=== PATIENT | female | born 1985 | race Two or more races ===

== ENCOUNTER 2017-05-12 17:54 | Emergency (ER) | payer SELFPAY ==
[~2017-05-12] VITALS: Ht 147.3 cm; Wt 75.7 kg
[~2017-05-12 17:54] MED LIST: LEVO25TA4 PO
[2017-05-12 18:18] VITALS: BP 100/50
--- NOTE | 2017-05-12 18:41 | PHYS DOC ---
Past Medical History Past Medical History: Anemia Past Surgical History: No Surgical History Alcohol Use: None Drug Use: None Adult General Chief Complaint Chief Complaint: CONTISPATION HPI HPI Patient is a 32 year old female presenting to the emergency department for evaluation of abdominal pain back pain nausea vomiting constipation and not passing gas. Patient had surgery 2 days ago at [facility] for her back with Dr. Ko. Patient says that she is having numbness and tingling in her legs which her neurosurgeon said would be expected. Patient says that she is taking hydrocodone and Valium for pain and spasms. She is in no obvious distress with normal vital signs. Review of Systems Review of Systems Constitutional: Denies fever or chills [] Eyes: Denies change in visual acuity, redness, or eye pain [] HENT: Denies nasal congestion or sore throat [] Respiratory: Denies cough or shortness of breath [] Cardiovascular: No additional information not addressed in HPI [] GI: + abdominal pain, nausea, vomiting. No bloody stools or diarrhea [] : Denies dysuria or hematuria [] Musculoskeletal: + back pain. No joint pain [] Integument: Denies rash or skin lesions [] Neurologic: Denies headache, focal weakness or sensory changes [] Current Medications Current Medications Current Medications Medications (Trade) Dose Ordered Sig/Jean Start Time Stop Time Status Last Admin Dose Admin Ceftriaxone Sodium 1 gm/ Sodium Chloride 50 ml @ 100 mls/hr Q24H 05/13/17 19:30 Ceftriaxone Sodium 50 ml @ 100 mls/hr 1X ONCE 05/12/17 19:45 05/12/17 20:14 Fentanyl Citrate (Fentanyl 2ml Vial) 50 mcg 1X ONCE 05/12/17 18:45 05/12/17 18:46 DC 05/12/17 18:50 50 MCG Info (Do NOT chart on this entry -- for MONITORING) 1 each PRN DAILY PRN 05/12/17 18:45 05/14/17 18:44 Iohexol (Omnipaque 240 Mg/ml) 30 ml 1X ONCE 05/12/17 18:45 05/12/17 18:46 DC Iohexol (Omnipaque 300 Mg/ml) 75 ml 1X ONCE 05/12/17 18:45 05/12/17 18:46 DC Magnesium Citrate (Citroma) 296 ml 1X ONCE 05/12/17 19:30 05/12/17 19:31 DC Methylnaltrexone [place] (Relistor) 12 mg 1X ONCE 05/12/17 19:30 05/12/17 19:31 DC Ondansetron HCl (Zofran) 8 mg 1X ONCE 05/12/17 18:45 05/12/17 18:46 DC 05/12/17 18:49 8 MG Sodium Chloride 1,000 ml @ 1,000 mls/hr 1X ONCE 05/12/17 18:45 05/12/17 19:44 DC 05/12/17 19:05 1,000 MLS/HR Allergies Allergies Allergies Coded Allergies Type Severity Reaction Last Updated Verified Iodine and Iodide Containing Produc Adverse Reaction Severe Rash 05/12/17 Yes Physical Exam Physical Exam Constitutional: Well developed, well nourished, no acute distress, non-toxic appearance. [] HENT: Normocephalic, atraumatic, bilateral external ears normal, oropharynx moist, no oral exudates, nose normal. [] Eyes: PERRLA, EOMI, conjunctiva normal, no discharge. [] Neck: Normal range of motion, no tenderness, supple, no stridor. [] Cardiovascular:Heart rate regular rhythm, no murmur [] Lungs & Thorax: Bilateral breath sounds clear to auscultation [] Abdomen: Bowel sounds hyperactive, soft, diffuse lower tenderness, no rebound or guarding, no masses, no pulsatile masses. [] Skin: Warm, dry, no erythema, no rash. [] Back: No tenderness, no CVA tenderness. [] Extremities: No tenderness, no cyanosis, no clubbing, ROM intact, no edema. [] Neurologic: Alert and oriented X 3, normal motor function, normal sensory function, no focal deficits noted. [] Current Patient Data Vital Signs Vital Signs Date Time Temp Pulse Resp B/P (MAP) Pulse Ox O2 Delivery O2 Flow Rate FiO2 05/12/17 18:50 20 100 Room Air 05/12/17 18:18 98.2 69 100/50 (67) 98.2 Lab Values Laboratory Tests Test 05/12/17 18:13 05/12/17 18:28 Urine Collection Type Unknown Urine Color Yellow Urine Clarity Cloudy Urine pH 5.5 Urine Specific [place] 1.020 Urine Protein Negative mg/dL (NEG-TRACE) Urine Glucose (UA) Negative mg/dL (NEG) Urine Ketones (Stick) Negative mg/dL (NEG) Urine Blood Small (NEG) Urine Nitrite Negative (NEG) Urine Bilirubin Negative (NEG) Urine Urobilinogen Dipstick 0.2 mg/dL (0.2 mg/dL) Urine Leukocyte Esterase Large (NEG) Urine RBC Occ /HPF (0-2) Urine WBC 20-40 /HPF (0-4) Urine Squamous Epithelial Cells Mod /LPF Urine Bacteria Many /HPF (0-FEW) Urine Mucus Slight /LPF White Blood Count 9.3 x10^3/uL (4.0-11.0) Red Blood Count 3.67 x10^6/uL (3.50-5.40) Hemoglobin 11.6 g/dL (12.0-15.5) L Hematocrit 33.6 % (36.0-47.0) L Mean Corpuscular Volume 92 fL (79-100) Mean Corpuscular Hemoglobin 32 pg (25-35) Mean Corpuscular Hemoglobin Concent 35 g/dL (31-37) Red Cell Distribution Width 12.6 % (11.5-14.5) Platelet Count 297 x10^3/uL (140-400) Neutrophils (%) (Auto) 65 % (31-73) Lymphocytes (%) (Auto) 26 % (24-48) Monocytes (%) (Auto) 7 % (0-9) Eosinophils (%) (Auto) 1 % (0-3) Basophils (%) (Auto) 1 % (0-3) Neutrophils # (Auto) 6.1 x10^3uL (1.8-7.7) Lymphocytes # (Auto) 2.4 x10^3/uL (1.0-4.8) Monocytes # (Auto) 0.6 x10^3/uL (0.0-1.1) Eosinophils # (Auto) 0.1 x10^3/uL (0.0-0.7) Basophils # (Auto) 0.1 x10^3/uL (0.0-0.2) Sodium Level 142 mmol/L (136-145) Potassium Level 4.1 mmol/L (3.5-5.1) Chloride Level 104 mmol/L (98-107) Carbon Dioxide Level 33 mmol/L (21-32) H Anion Gap 5 (6-14) L Blood Urea Nitrogen 7 mg/dL (7-20) Creatinine 0.8 mg/dL (0.6-1.0) Estimated GFR (Cockcroft-Gault) 83.7 BUN/Creatinine Ratio 9 (6-20) Glucose Level 89 mg/dL (70-99) Calcium Level 8.3 mg/dL (8.5-10.1) L Magnesium Level 1.7 mg/dL (1.8-2.4) L Total Bilirubin 0.3 mg/dL (0.2-1.0) Aspartate Amino Transferase (AST) 13 U/L (15-37) L Alanine Aminotransferase (ALT) 19 U/L (14-59) Alkaline Phosphatase 60 U/L (46-116) Total Protein 7.0 g/dL (6.4-8.2) Albumin 3.1 g/dL (3.4-5.0) L Albumin/Globulin Ratio 0.8 (1.0-1.7) L Lipase 90 U/L (73-393) Laboratory Tests 05/12/17 18:28 Laboratory Tests 05/12/17 18:28 EKG EKG [] Radiology/Procedures Radiology/Procedures History: Severe back pain and constipation after L4-5 decompression May 10, 2017. Comparison: None. Technique: CT of the abdomen and pelvis was performed without intravenous or oral contrast. Exposure: One or more of the following individualized dose reduction techniques were utilized for this examination: 1. Automated exposure control 2. Adjustment of the mA and/or kV according to patient size 3. Use of iterative reconstruction technique Findings: Evaluation of solid organs of the abdomen and pelvis is limited by lack of intravenous contrast. Evaluation of enteric structures may be limited by lack of oral contrast. Images of the lower chest demonstrate bibasilar atelectasis. Liver, spleen, pancreas, and bilateral adrenal glands unremarkable. Gallbladder is not well-seen and may be absent. Bilateral kidneys and ureters are free of stone or obstruction. No bowel obstruction or inflammation is seen. Appendix is without evidence of inflammation. Mild-moderate colonic stool is present. Uterus and adnexa have unremarkable CT appearance. Urinary bladder is unremarkable. No free air or significant free fluid is seen in the abdomen or pelvis. There is transitional anatomy present with 6 lumbar type vertebral bodies. Laminectomy changes are seen involving the 2 lowest lumbar type vertebral bodies. The surgical site also demonstrates foci of expected postoperative gas. Impression: No acute abnormality identified in the abdomen or pelvis. Electronically signed by: Casa Balderrama MD (05/12/2017 7:16 PM) [facility] DICTATED and SIGNED BY: CASA BALDERRAMA MD DATE: 05/12/171910 Course & Med Decision Making Course & Med Decision Making Patient had a large bowel movement after her CT scan and now she is feeling much better and is to go home. She may have a urinary tract infection from the catheter so will start on a short course of antibiotics. Patient told that it is very important she take stool softeners with all the pain medications that she is taking. I told to follow with her neurosurgeon and call them with any other concerns and come back to the ER with any worsening pain fevers vomiting or other general concerns. Dragon Disclaimer Dragon Disclaimer This electronic medical record was generated, in whole or in part, using a voice recognition dictation system. Departure Departure Impression: Primary Impression: Abdominal pain Additional Impressions: Constipation UTI (urinary tract infection) Disposition: 01 HOME, SELF-CARE Condition: GOOD Referrals: NO PCP (PCP) Patient Instructions: Constipation, Adult Scripts Ciprofloxacin Hcl (CIPRO) 250 Mg Tablet 1 TAB PO BID, #6 TAB Prov: KONG LOZA DO 05/12/17 Problem Qualifiers Primary Impression: Abdominal pain Abdominal location: lower abdomen, unspecified Qualified Codes: R10.30 - Lower abdominal pain, unspecified KONG LOZA DO May 12, 2017 18:41
[2017-05-12 18:44] LABS: BASO # 0.1 x10^3/uL (0.0-0.2); BASO % 1 % (0-3); EOS % 1 % (0-3); HEMATOCRIT 33.6 % (36.0-47.0); HEMOGLOBIN 11.6 g/dL (12.0-15.5); LYMPH # 2.4 x10^3/uL (1.0-4.8); LYMPH % 26 % (24-48); MEAN CORPUSCULAR HEMOGLOBIN 32 pg (25-35); MEAN CORPUSCULAR HGB CONC 35 g/dL (31-37); MEAN CORPUSCULAR VOLUME 92 fL (79-100); MONO % 7 % (0-9); NEUT % 65 % (31-73); PLATELET COUNT 297 x10^3/uL (140-400); RED BLOOD COUNT 3.67 x10^6/uL (3.50-5.40); RED CELL DISTRIBUTION WIDTH 12.6 % (11.5-14.5); WHITE BLOOD COUNT 9.3 x10^3/uL (4.0-11.0)
[2017-05-12] MEDS ORDERED: CONTRAST GIVEN MC PRN (18:45)
[2017-05-12] MEDS ORDERED: ONDANSETRON PF 4 MG/2 ML VIAL. IV ONE (18:45)
[2017-05-12] MEDS ORDERED: IOHEXOL 300 MG/ML 75 ML VIAL IV ONE (18:45)
[2017-05-12] MEDS ORDERED: IV NORMAL SALINE 1000ML BAG 1,000 ML IV ONE (18:45)
[2017-05-12] MEDS ORDERED: IOHEXOL 240 MG/ML 50ML VIAL. PO ONE (18:45)
[2017-05-12] MEDS ORDERED: fentaNYL PF VIAL 100 MCG/2 ML VIAL IV ONE (18:45)
[2017-05-12 18:47] LABS: BILIRUBIN,URINE NEGATIVE (NEG); GLUCOSE,URINE NEGATIVE (NEG); NITRITE,URINE NEGATIVE (NEG); PH,URINE 5.5; PROTEIN,URINE NEGATIVE (NEG-TRACE); UROBILINOGEN,URINE 0.2 mg/dL (0.2 mg/dL)
[2017-05-12 18:51] LABS: BACTERIA,URINE MANY /HPF (0-FEW); RBC,URINE OCC /HPF (0-2); WBC,URINE 20-40 /HPF (0-4)
[2017-05-12 18:52] LABS: SQUAMOUS EPITHELIAL CELL,UR MOD /LPF
[2017-05-12 19:02] LABS: CALCIUM 8.3 mg/dL (8.5-10.1); CREATININE 0.8 mg/dL (0.6-1.0); GFR 83.7; POTASSIUM 4.1 mmol/L (3.5-5.1)
[2017-05-12 19:05] LABS: ALBUMIN 3.1 g/dL (3.4-5.0); ALBUMIN/GLOBULIN RATIO 0.8 (1.0-1.7); MAGNESIUM 1.7 mg/dL (1.8-2.4); TOTAL BILIRUBIN 0.3 mg/dL (0.2-1.0)
--- NOTE | 2017-05-12 19:19 | RAD ---
History: Severe back pain and constipation after L4-5 decompression May 10, 2017. Comparison: None. Technique: CT of the abdomen and pelvis was performed without intravenous or oral contrast. Exposure: One or more of the following individualized dose reduction techniques were utilized for this examination: 1. Automated exposure control 2. Adjustment of the mA and/or kV according to patient size 3. Use of iterative reconstruction technique Findings: Evaluation of solid organs of the abdomen and pelvis is limited by lack of intravenous contrast. Evaluation of enteric structures may be limited by lack of oral contrast. Images of the lower chest demonstrate bibasilar atelectasis. Liver, spleen, pancreas, and bilateral adrenal glands unremarkable. Gallbladder is not well-seen and may be absent. Bilateral kidneys and ureters are free of stone or obstruction. No bowel obstruction or inflammation is seen. Appendix is without evidence of inflammation. Mild-moderate colonic stool is present. Uterus and adnexa have unremarkable CT appearance. Urinary bladder is unremarkable. No free air or significant free fluid is seen in the abdomen or pelvis. There is transitional anatomy present with 6 lumbar type vertebral bodies. Laminectomy changes are seen involving the 2 lowest lumbar type vertebral bodies. The surgical site also demonstrates foci of expected postoperative gas. Impression: No acute abnormality identified in the abdomen or pelvis. Electronically signed by: Casa Balderrama MD (05/12/2017 7:16 PM) [facility]
[2017-05-12] MEDS ORDERED: MAGNESIUM CITRATE 296 ML SOLUTION. PO ONE (19:30)
[2017-05-12] MEDS ORDERED: METHYLNALTREXONE 12 MG/0.6 ML VIAL. SQ ONE (19:30)
[2017-05-12] MEDS ORDERED: CIPR250T30 PO (19:54)
== END 2017-05-12 20:10 | disposition home or self-care (01) ==
LOC: ER 17:54
DX: N39.0 Urinary tract infection, site not specified (principal); K59.00 Constipation, unspecified; Z86.2 Personal history of diseases of the blood and blood-forming organs and certain disorders involving the immune mechanism; Z91.041 Radiographic dye allergy status
CPT/HCPCS: 36415; 74176; 80053; 81001; 83690; 83735; 85027; 87086; 96361; 96374; 96375; 99285; C1887; J2405; J3010; J7030

== ENCOUNTER 2018-08-01 10:01 | Emergency (ER) | payer SELFPAY ==
[~2018-08-01] VITALS: Ht 160 cm; Wt 68.0 kg
[~2018-08-01 10:01] MED LIST changes: +CIPR250T30 PO
[2018-08-01 10:30] LABS: BILIRUBIN,URINE NEGATIVE (NEG); CLARITY,URINE CLOUDY; COLOR,URINE YELLOW; NITRITE,URINE NEGATIVE (NEG); PROTEIN,URINE NEGATIVE (NEG-TRACE); UROBILINOGEN,URINE 0.2 mg/dL (0.2 mg/dL)
[2018-08-01 10:42] LABS: BACTERIA,URINE FEW /HPF (0-FEW); RBC,URINE OCC /HPF (0-2); SQUAMOUS EPITHELIAL CELL,UR MANY /LPF
--- NOTE | 2018-08-01 10:43 | PHYS DOC ---
Past Medical History Past Medical History: Anemia Past Surgical History: No Surgical History Alcohol Use: None Drug Use: None Adult General Chief Complaint Chief Complaint: ABDOMINAL PAIN IN [facility] HPI Patient is a 33 year old female with history of anemia who presents today complaining of mild left-sided abdominal pain and spotting in . Patient is a 4 para 0. She's had one ectopic . She states since last night she is noted some mild left lower quadrant abdominal pain and spotting. She states the spotting had stopped this morning. Patient denies any nausea vomiting. Denies any fever. Patient states she is 7 weeks . Review of Systems Review of Systems Constitutional: Denies fever or chills [] Eyes: Denies change in visual acuity, redness, or eye pain [] HENT: Denies nasal congestion or sore throat [] Respiratory: Denies cough or shortness of breath [] Cardiovascular: No additional information not addressed in HPI [] GI: Reports abdominal pain in , spotting, denies nausea, vomiting, bloody stools or diarrhea [] : Denies dysuria or hematuria [] Musculoskeletal: Denies back pain or joint pain [] Integument: Denies rash or skin lesions [] Neurologic: Denies headache, focal weakness or sensory changes [] All other systems were reviewed and found to be within normal limits, except as documented in this note. Allergies Allergies Allergies Coded Allergies Type Severity Reaction Last Updated Verified Iodine and Iodide Containing Produc Adverse Reaction Severe Rash 05/12/17 Yes Physical Exam Physical Exam Constitutional: Well developed, well nourished, no acute distress, non-toxic appearance. [] HENT: Normocephalic, atraumatic, bilateral external ears normal, oropharynx moist, no oral exudates, nose normal. [] Eyes: PERRLA, EOMI, conjunctiva normal, no discharge. [] Neck: Normal range of motion, no tenderness, supple, no stridor. [] Cardiovascular:Heart rate regular rhythm, no murmur [] Lungs & Thorax: Bilateral breath sounds clear to auscultation [] Abdomen: Bowel sounds normal, soft, no tenderness, no masses, no pulsatile masses. [] Pelvic exam External pelvic is normal, cervix is closed, no CMT, small amount of white discharge in the vaginal vault, no bleeding, no adnexal tenderness. Skin: Warm, dry, no erythema, no rash. [] Back: No tenderness, no CVA tenderness. [] Extremities: No tenderness, no cyanosis, no clubbing, ROM intact, no edema. [] Neurologic: Alert and oriented X 3, normal motor function, normal sensory function, no focal deficits noted. [] Psychologic: Affect normal, judgement normal, mood normal. [] Current Patient Data Vital Signs Vital Signs Date Time Temp Pulse Resp B/P (MAP) Pulse Ox O2 Delivery O2 Flow Rate FiO2 08/01/18 10:49 98.4 68 18 100/49 (66) 100 98.4 Lab Values Laboratory Tests Test 08/01/18 10:13 08/01/18 10:21 08/01/18 10:50 Urine Collection Type Unknown Urine Color Yellow Urine Clarity Cloudy Urine pH 6.0 Urine Specific [place] 1.020 Urine Protein Negative mg/dL (NEG-TRACE) Urine Glucose (UA) Negative mg/dL (NEG) Urine Ketones (Stick) 40 mg/dL (NEG) Urine Blood Negative (NEG) Urine Nitrite Negative (NEG) Urine Bilirubin Negative (NEG) Urine Urobilinogen Dipstick 0.2 mg/dL (0.2 mg/dL) Urine Leukocyte Esterase Large (NEG) Urine RBC Occ /HPF (0-2) Urine WBC 11-20 /HPF (0-4) Urine Squamous Epithelial Cells Many /LPF Urine Bacteria Few /HPF (0-FEW) Urine Mucus Marked /LPF POC Urine HCG, Qualitative Hcg positive (Negative) White Blood Count 7.0 x10^3/uL (4.0-11.0) Red Blood Count 3.91 x10^6/uL (3.50-5.40) Hemoglobin 12.5 g/dL (12.0-15.5) Hematocrit 35.7 % (36.0-47.0) L Mean Corpuscular Volume 91 fL (79-100) Mean Corpuscular Hemoglobin 32 pg (25-35) Mean Corpuscular Hemoglobin Concent 35 g/dL (31-37) Red Cell Distribution Width 12.7 % (11.5-14.5) Platelet Count 259 x10^3/uL (140-400) Neutrophils (%) (Auto) 66 % (31-73) Lymphocytes (%) (Auto) 25 % (24-48) Monocytes (%) (Auto) 7 % (0-9) Eosinophils (%) (Auto) 1 % (0-3) Basophils (%) (Auto) 1 % (0-3) Neutrophils # (Auto) 4.6 x10^3uL (1.8-7.7) Lymphocytes # (Auto) 1.8 x10^3/uL (1.0-4.8) Monocytes # (Auto) 0.5 x10^3/uL (0.0-1.1) Eosinophils # (Auto) 0.1 x10^3/uL (0.0-0.7) Basophils # (Auto) 0.1 x10^3/uL (0.0-0.2) Maternal Serum HCG Beta Subunit 94278 mIU/mL (0-5) H Sodium Level 139 mmol/L (136-145) Potassium Level 3.8 mmol/L (3.5-5.1) Chloride Level 104 mmol/L (98-107) Carbon Dioxide Level 25 mmol/L (21-32) Anion Gap 10 (6-14) Blood Urea Nitrogen 7 mg/dL (7-20) Creatinine 0.5 mg/dL (0.6-1.0) L Estimated GFR (Cockcroft-Gault) 143.0 BUN/Creatinine Ratio 14 (6-20) Glucose Level 92 mg/dL (70-99) Calcium Level 8.9 mg/dL (8.5-10.1) Total Bilirubin 0.3 mg/dL (0.2-1.0) Aspartate Amino Transferase (AST) 15 U/L (15-37) Alanine Aminotransferase (ALT) 34 U/L (14-59) Alkaline Phosphatase 55 U/L (46-116) Total Protein 8.0 g/dL (6.4-8.2) Albumin 3.9 g/dL (3.4-5.0) Albumin/Globulin Ratio 1.0 (1.0-1.7) Laboratory Tests 08/01/18 10:50 Laboratory Tests 08/01/18 10:50 Microbiology 08/01/18 Wet Prep - Final, Complete EKG EKG [] Radiology/Procedures Radiology/Procedures []PROCEDURE: OB <14 WKS W/TV Obstetrical ultrasound, 08/01/2018: HISTORY: Abdominal pain and spotting Transabdominal and transvaginal scans were obtained. The uterus is enlarged and contains a single gestational sac. The gestational sac contains a pole and a yolk sac. The pole demonstrates a crown-rump length of 5 mm compatible with a gestational age of approximately 6 weeks and a sonographic EDC of 03/26/2019. cardiac activity is present with a heart rate of 132 bpm. No subchorionic hemorrhage is identified. The ovaries are within normal limits in size. There is a 2.5 cm relatively isoechoic nodule in the left ovary. Vascular flow is seen along its margins. This probably represents a hemorrhagic cyst. The right ovary is unremarkable. No free fluid is evident in the pelvis. IMPRESSION: 1. Single viable intrauterine fetus of approximately 6 weeks gestational age. 2. Small isoechoic nodule in the left ovary, probably a hemorrhagic cyst. Electronically signed by: Keaton Sifuentes MD (08/01/2018 12:25 PM) [facility] DICTATED and SIGNED BY: KEATON SIFUENTES MD DATE: 08/01/18 1221 Course & Med Decision Making Course & Med Decision Making Pertinent Labs and Imaging studies reviewed. (See chart for details) This is a 33-year-old female patient 4 para 0 presenting to the ED today complaining of left lower quadrant abdominal pain and spotting in that began yesterday. No bleeding or spotting noted on pelvic exam. Positive urine hCG. Urine analysis is noted for UTI, will be discharged cephalexin, wet prep noted for BV comorbid discharge and Flagyl. CBC with normal WBC. Hemoglobin 12.5 hematocrit 35.7. Beta hCG 57,956. OB ultrasound was noted for a single IUP 6 weeks gestational age. Small isoechoic nodule in the left ovary, probably a hemorrhagic cyst. Patient is in no distress. Patient was provided OB for follow-up as an outpatient in the next 2 days for repeat beta hCG. She was provided proper return precautions including the need to return to the ED at any point symptoms worsen. Her blood group is O+. Pelvic rest provided Dragon Disclaimer Dragon Disclaimer This electronic medical record was generated, in whole or in part, using a voice recognition dictation system. Departure Departure Impression: Primary Impression: UTI (lower urinary tract infection) Additional Impressions: Threatened miscarriage Bacterial vaginosis Disposition: HOME, SELF-CARE Condition: STABLE Referrals: NO PCP (PCP) SHELLEY RODRIGUEZ MD Follow-up in 2 days Patient Instructions: Bacterial Vaginosis, [id number], Threatened Miscarriage , Urinary Tract Infection Additional Instructions: You were evaluated in the emergency room for vaginal bleeding in . Your ultrasound shows you are 6 weeks , you also have a hemorrhagic cyst to the left ovary, follow-up with an [facility] for this. You also have urinary tract infection and bacterial vaginosis, we put you on antibiotics for this. Complete them. Follow up with the OBGYN provided as soon as you can. Maintain pelvic rest no sex, no lifting or doing any strenuous activities. Scripts Metronidazole (FLAGYL) 500 Mg Tablet 1 TAB PO BID, #14 TAB Prov: MEGGAN ENRIQUEZ APRN 08/01/18 Cephalexin (CEPHALEXIN) 500 Mg Tablet 1 TAB PO BID, #14 TAB Prov: MEGGAN ENRIQUEZ APRN 08/01/18 Problem Qualifiers MEGGAN ENRIQUEZ APRN Aug 01, 2018 10:43
[2018-08-01 11:03] LABS: BASO # 0.1 x10^3/uL (0.0-0.2); BASO % 1 % (0-3); EOS # 0.1 x10^3/uL (0.0-0.7); EOS % 1 % (0-3); HEMATOCRIT 35.7 % (36.0-47.0); HEMOGLOBIN 12.5 g/dL (12.0-15.5); LYMPH # 1.8 x10^3/uL (1.0-4.8); LYMPH % 25 % (24-48); MEAN CORPUSCULAR HEMOGLOBIN 32 pg (25-35); MEAN CORPUSCULAR HGB CONC 35 g/dL (31-37); MEAN CORPUSCULAR VOLUME 91 fL (79-100); MONO # 0.5 x10^3/uL (0.0-1.1); MONO % 7 % (0-9); NEUT # 4.6 x10^3uL (1.8-7.7); NEUT % 66 % (31-73); PLATELET COUNT 259 x10^3/uL (140-400); RED BLOOD COUNT 3.91 x10^6/uL (3.50-5.40); RED CELL DISTRIBUTION WIDTH 12.7 % (11.5-14.5)
[2018-08-01 11:14] LABS: CALCIUM 8.9 mg/dL (8.5-10.1); CREATININE 0.5 mg/dL (0.6-1.0); POTASSIUM 3.8 mmol/L (3.5-5.1)
[2018-08-01 11:20] LABS: ALBUMIN 3.9 g/dL (3.4-5.0); TOTAL BILIRUBIN 0.3 mg/dL (0.2-1.0)
--- NOTE | 2018-08-01 12:29 | RAD ---
Obstetrical ultrasound, 08/01/2018: HISTORY: Abdominal pain and spotting Transabdominal and transvaginal scans were obtained. The uterus is enlarged and contains a single gestational sac. The gestational sac contains a pole and a yolk sac. The pole demonstrates a crown-rump length of 5 mm compatible with a gestational age of approximately 6 weeks and a sonographic EDC of 03/26/2019. cardiac activity is present with a heart rate of 132 bpm. No subchorionic hemorrhage is identified. The ovaries are within normal limits in size. There is a 2.5 cm relatively isoechoic nodule in the left ovary. Vascular flow is seen along its margins. This probably represents a hemorrhagic cyst. The right ovary is unremarkable. No free fluid is evident in the pelvis. IMPRESSION: 1. Single viable intrauterine fetus of approximately 6 weeks gestational age. 2. Small isoechoic nodule in the left ovary, probably a hemorrhagic cyst. Electronically signed by: Keaton Sifuentes MD (08/01/2018 12:25 PM) [facility]
[2018-08-01 12:45] VITALS: BP 101/57
[2018-08-01] MEDS ORDERED: METR500T PO (12:58)
[2018-08-01] MEDS ORDERED: CEPH500T PO (12:58)
[2018-08-02 14:32] LABS: GC PROBE Negative (Negative)
== END 2018-08-01 13:08 | disposition home or self-care (01) ==
LOC: ER 10:01
DX: O20.0 Threatened abortion (principal); O23.591 Infection of other part of genital tract in pregnancy, first trimester; O99.011 Anemia complicating pregnancy, first trimester; O23.41 Unspecified infection of urinary tract in pregnancy, first trimester; B96.89 Other specified bacterial agents as the cause of diseases classified elsewhere; Z91.041 Radiographic dye allergy status; Z3A.01 Less than 8 weeks gestation of pregnancy
CPT/HCPCS: 36415; 76801; 76817; 80053; 81001; 81025; 84702; 85025; 86850; 86900; 86901; 87491; 87591; 99285; Q0111

== ENCOUNTER 2019-01-03 00:48 | Observation (INO) | payer SELFPAY ==
[~2019-01-03 00:48] MED LIST changes: +CEPH500T PO; +METR500T PO
[2019-01-03 01:12] LABS: BILIRUBIN,URINE NEGATIVE (NEG); CLARITY,URINE CLEAR; COLOR,URINE YELLOW; NITRITE,URINE NEGATIVE (NEG); PH,URINE 5.5; PROTEIN,URINE NEGATIVE (NEG-TRACE)
[2019-01-03 01:19] LABS: BARBITURATES NEG (NEG); BENZODIAZEPINES NEG (NEG); CANNABINOIDS NEG (NEG); COCAINE NEG (NEG); METHADONE NEG (NEG); OPIATES NEG (NEG); PHENCYCLIDINE NEG (NEG)
[2019-01-03 01:21] LABS: AMORPHOUS SEDIMENT,UR PRESENT /HPF; BACTERIA,URINE FEW /HPF (0-FEW); RBC,URINE 0 /HPF (0-2); SQUAMOUS EPITHELIAL CELL,UR MOD /LPF
[2019-01-03 01:22] LABS: AMPHETAMINE/METHAMPHETAMINE NEG (NEG)
[2019-01-03] MEDS: IV RINGERS,LACTATED 1000ML 1,000 ML IV SCH ×2 (02:04→03:00)
[2019-01-03] MEDS: MORPHINE SULFATE 10 MG/ML VIAL. IV PRN ×2 (02:12→06:23)
[2019-01-03] MEDS ORDERED: PANTOPRAZOLE IV PUSH 40 MG VIAL. IVP ONE (02:30)
--- NOTE | 2019-01-03 03:12 | RAD ---
Abdominal ultrasound dated 01/03/2019. No comparison available. Clinical data indication: Right upper quadrant pain. FINDINGS: Liver is homogeneous in echogenicity. No focal hepatic mass. Intrahepatic and extra hepatic biliary tree within normal limits in caliber. The common bile duct measures 5 mm diameter. There are echogenic shadowing foci within the gallbladder lumen. Borderline wall thickening measuring up to 3 mm. No pericholecystic fluid. Right kidney measures 9.3 cm in length without hydronephrosis. Left kidney was not imaged. Limited visualized portions of pancreas aorta and IVC unremarkable. No significant ascites. IMPRESSION: 1. Cholelithiasis with borderline gallbladder wall thickening. Early cholecystitis cannot be excluded. 2. Otherwise no significant abnormality. Common bile duct is upper limits of normal in caliber for age. No intrahepatic ductal dilatation. Electronically signed by: Casa Loza MD (01/03/2019 3:09 AM) [facility]
[2019-01-03 03:15] LABS: BASO # 0.1 x10^3/uL (0.0-0.2); BASO % 1 % (0-3); EOS % 0 % (0-3); HEMATOCRIT 30.1 % (36.0-47.0); HEMOGLOBIN 9.8 g/dL (12.0-15.5); LYMPH # 1.7 x10^3/uL (1.0-4.8); LYMPH % 14 % (24-48); MEAN CORPUSCULAR HEMOGLOBIN 29 pg (25-35); MEAN CORPUSCULAR HGB CONC 33 g/dL (31-37); MEAN CORPUSCULAR VOLUME 89 fL (79-100); MONO # 0.7 x10^3/uL (0.0-1.1); MONO % 6 % (0-9); NEUT # 9.5 x10^3uL (1.8-7.7); NEUT % 79 % (31-73); PLATELET COUNT 328 x10^3/uL (140-400); RED BLOOD COUNT 3.38 x10^6/uL (3.50-5.40)
--- NOTE | 2019-01-03 03:18 | RAD ---
OB ultrasound dated 01/03/2019. No comparison available. Clinical data indication: Unsure of dates. Findings: There is a single intrauterine gestation in cephalic presentation. The placenta is posterior in location without evidence of placental previa. The amount of amniotic fluid appears appropriate. DAV equals 16.7 cm. Biometrical data is as follows: BPD = 7.0 cm cm for 28 weeks 0 days. HC = 27.4 cm for 29 weeks 6 days. AC = 24.5 cmfor 29 weeks 2 days. FL = 5.8 cm for 30 weeks 2 days. Overall, the estimated sonographic gestational age is 29 weeks 3 days for an estimated date of delivery of 03/18/2019. This is within 8 days of the estimated date of delivery provided by the last menstrual period. Estimated weight is 1415 g +/- 209 g. Complete survey was not performed. heart rate 143 bpm. Impression: Single viable intrauterine gestation with estimated sonographic gestational age of 29 weeks 3 days. No acute findings. Electronically signed by: Casa Loza MD (01/03/2019 3:16 AM) [facility]
[2019-01-03 03:28] LABS: CALCIUM 8.4 mg/dL (8.5-10.1); CREATININE 0.5 mg/dL (0.6-1.0); POTASSIUM 3.9 mmol/L (3.5-5.1)
[2019-01-03 03:33] LABS: ALBUMIN 2.4 g/dL (3.4-5.0); ALBUMIN/GLOBULIN RATIO 0.7 (1.0-1.7); TOTAL BILIRUBIN 0.3 mg/dL (0.2-1.0)
[2019-01-03] MEDS: IV RINGERS,LACTATED 1000ML 1,000 ML IV PRN ×2 (04:09→10:26)
[2019-01-03] MEDS: AMPICILLIN SODIUM 2 GM in IV NORMAL SALINE 100ML 100 ML IV SCH ×2 (08:15→14:04)
--- NOTE | 2019-01-03 08:42 | PDOC2 ---
ELISEO GARCIA FACILITY ADMINISTRATOR 01/03/19 0842: CONSULT Date of Consult Date of Consult DATE: 01/03/19 TIME: 08:37 Reason for Consult Reason for Consult: cholelithiasis Referring Physician Referring Physician: Dr Vidales Identification/Chief Complaint Chief Complaint abdominal pain Source Source: Chart review, Patient History of Present Illness Reason for Visit: Family interprets for patient. 5 days of upper abdominal pain that radiates to her back. Associated nausea and emesis. Eating aggravates pain. She in [place] 5 days ago and treated for gastritis, UTI and told she had gallstones Past Medical History Endocrine: Hypothyroidism Past Surgical History Past Surgical History: No pertinent history Family History Family History: Diabetes Social History No ALCOHOL: none Drugs: None Lives: with Family Current Medications Current Medications Current Medications Ringer's Solution 1,000 ml @ 175 mls/hr Q5H43M PRN IV hydration Last administered on 01/03/19at 04:09; Start 01/03/19 at 01:00 Ringer's Solution 1,000 ml @ 999 mls/hr Q1H1M IV Last administered on at 03:00; Start 01/03/19 at 02:00; Stop 01/03/19 at 04:01; Status DC Pantoprazole Sodium (PROTONIX VIAL for IV PUSH) 40 mg 1X ONCE IVP Last administered on 01/03/19at 02:12; Start 01/03/19 at 02:30; Stop 01/03/19 at 02:31; Status DC Morphine Sulfate (Morphine Sulfate) 4 mg PRN Q2HR PRN IV SEVERE PAIN Last administered on 01/03/19at 06:23; Start 01/03/19 at 01:45 Ampicillin Sodium 2 gm/Sodium Chloride 100 ml @ 200 mls/hr Q6H IV Last administered on 01/03/19at 08:15; Start 01/03/19 at 09:00 Active Scripts Active Flagyl (Metronidazole) 500 Mg Tablet 1 Tab PO BID Cephalexin 500 Mg Tablet 1 Tab PO BID Cipro (Ciprofloxacin Hcl) 250 Mg Tablet 1 Tab PO BID Reported Levothyroxine Sodium 25 Mcg Tablet 1 Tab PO DAILY Allergies Allergies: Coded Allergies: Iodine and Iodide Containing Produc (Verified Adverse Reaction, Severe, Rash, 05/12/17) RASH AND INABILITY TO BREATHE ROS General: No: Chills, Other (fevers ) PSYCHOLOGICAL ROS: No: Anxiety, Depression Eyes: No Blurry vision, No Double vision HEENT: No: Heacaches, Sore Throat Hematological and Lymphatic: No: Bleeding Problems, Blood Clots Respiratory: No: Cough, Shortness of breath Cardiovascular: No Chest Pain, No Palpitations Gastrointestinal: Yes Other (see hpi) Genitourinary: No Dysuria, No Hematuria Musculoskeletal: No Joint Pain, No Muscle Pain Neurological: No Confusion, No Impaired Coord/balance Skin: No Pruritus, No Rash Physical Exam General: Alert, Oriented X3, Cooperative, No acute distress HEENT: PERRLA, Mucous membr. moist/pink Lungs: Clear to auscultation, Normal air movement Heart: Regular rate, Normal S1, Normal S2, No murmurs Abdomen: Soft, Other ( abdomen, ttp uppper abdomen) Extremities: No clubbing, No cyanosis Skin: No rashes, No breakdown Neuro: Normal gait, Normal speech Psych/Mental Status: Mental status NL, Mood NL MUSCULOSKELETAL: No deformity, No swelling Vitals VITALS Vital Signs Date Time Temp Pulse Resp B/P (MAP) Pulse Ox O2 Delivery O2 Flow Rate FiO2 01/03/19 06:23 18 01/03/19 02:45 Room Air Labs Labs Laboratory Tests Test 01/03/19 01:05 01/03/19 03:00 Urine Collection Type Unknown Urine Color Yellow Urine Clarity Clear Urine pH 5.5 Urine Specific Pipestem >=1.030 Urine Protein Negative mg/dL (NEG-TRACE) Urine Glucose (UA) Negative mg/dL (NEG) Urine Ketones (Stick) >=80 mg/dL (NEG) Urine Blood Negative (NEG) Urine Nitrite Negative (NEG) Urine Bilirubin Negative (NEG) Urine Urobilinogen Dipstick 1.0 mg/dL (0.2 mg/dL) Urine Leukocyte Esterase Small (NEG) Urine RBC 0 /HPF (0-2) Urine WBC 5-10 /HPF (0-4) Urine Squamous Epithelial Cells Mod /LPF Urine Amorphous Sediment Present /HPF Urine Bacteria Few /HPF (0-FEW) Urine Mucus Mod /LPF Urine Opiates Screen Neg (NEG) Urine Methadone Screen Neg (NEG) Urine Barbiturates Neg (NEG) Urine Phencyclidine Screen Neg (NEG) Urine Amphetamine/Methamphetamine Neg (NEG) Urine Benzodiazepines Screen Neg (NEG) Urine Cocaine Screen Neg (NEG) Urine Cannabinoids Screen Neg (NEG) Urine Ethyl Alcohol Neg (NEG) White Blood Count 12.0 x10^3/uL (4.0-11.0) Red Blood Count 3.38 x10^6/uL (3.50-5.40) Hemoglobin 9.8 g/dL (12.0-15.5) Hematocrit 30.1 % (36.0-47.0) Mean Corpuscular Volume 89 fL (79-100) Mean Corpuscular Hemoglobin 29 pg (25-35) Mean Corpuscular Hemoglobin Concent 33 g/dL (31-37) Red Cell Distribution Width 13.0 % (11.5-14.5) Platelet Count 328 x10^3/uL (140-400) Neutrophils (%) (Auto) 79 % (31-73) Lymphocytes (%) (Auto) 14 % (24-48) Monocytes (%) (Auto) 6 % (0-9) Eosinophils (%) (Auto) 0 % (0-3) Basophils (%) (Auto) 1 % (0-3) Neutrophils # (Auto) 9.5 x10^3uL (1.8-7.7) Lymphocytes # (Auto) 1.7 x10^3/uL (1.0-4.8) Monocytes # (Auto) 0.7 x10^3/uL (0.0-1.1) Eosinophils # (Auto) 0.0 x10^3/uL (0.0-0.7) Basophils # (Auto) 0.1 x10^3/uL (0.0-0.2) Sodium Level 139 mmol/L (136-145) Potassium Level 3.9 mmol/L (3.5-5.1) Chloride Level 104 mmol/L (98-107) Carbon Dioxide Level 24 mmol/L (21-32) Anion Gap 11 (6-14) Blood Urea Nitrogen 10 mg/dL (7-20) Creatinine 0.5 mg/dL (0.6-1.0) Estimated GFR (Cockcroft-Gault) 143.0 BUN/Creatinine Ratio 20 (6-20) Glucose Level 95 mg/dL (70-99) Calcium Level 8.4 mg/dL (8.5-10.1) Total Bilirubin 0.3 mg/dL (0.2-1.0) Aspartate Amino Transf (AST/SGOT) 17 U/L (15-37) Alanine Aminotransferase (ALT/SGPT) 28 U/L (14-59) Alkaline Phosphatase 77 U/L (46-116) Total Protein 6.0 g/dL (6.4-8.2) Albumin 2.4 g/dL (3.4-5.0) Albumin/Globulin Ratio 0.7 (1.0-1.7) Amylase Level 59 U/L (25-115) Lipase 181 U/L (73-393) Laboratory Tests Test 01/03/19 01:05 01/03/19 03:00 Urine Collection Type Unknown Urine Color Yellow Urine Clarity Clear Urine pH 5.5 Urine Specific Pipestem >=1.030 Urine Protein Negative mg/dL (NEG-TRACE) Urine Glucose (UA) Negative mg/dL (NEG) Urine Ketones (Stick) >=80 mg/dL (NEG) Urine Blood Negative (NEG) Urine Nitrite Negative (NEG) Urine Bilirubin Negative (NEG) Urine Urobilinogen Dipstick 1.0 mg/dL (0.2 mg/dL) Urine Leukocyte Esterase Small (NEG) Urine RBC 0 /HPF (0-2) Urine WBC 5-10 /HPF (0-4) Urine Squamous Epithelial Cells Mod /LPF Urine Amorphous Sediment Present /HPF Urine Bacteria Few /HPF (0-FEW) Urine Mucus Mod /LPF Urine Opiates Screen Neg (NEG) Urine Methadone Screen Neg (NEG) Urine Barbiturates Neg (NEG) Urine Phencyclidine Screen Neg (NEG) Urine Amphetamine/Methamphetamine Neg (NEG) Urine Benzodiazepines Screen Neg (NEG) Urine Cocaine Screen Neg (NEG) Urine Cannabinoids Screen Neg (NEG) Urine Ethyl Alcohol Neg (NEG) White Blood Count 12.0 x10^3/uL (4.0-11.0) Red Blood Count 3.38 x10^6/uL (3.50-5.40) Hemoglobin 9.8 g/dL (12.0-15.5) Hematocrit 30.1 % (36.0-47.0) Mean Corpuscular Volume 89 fL (79-100) Mean Corpuscular Hemoglobin 29 pg (25-35) Mean Corpuscular Hemoglobin Concent 33 g/dL (31-37) Red Cell Distribution Width 13.0 % (11.5-14.5) Platelet Count 328 x10^3/uL (140-400) Neutrophils (%) (Auto) 79 % (31-73) Lymphocytes (%) (Auto) 14 % (24-48) Monocytes (%) (Auto) 6 % (0-9) Eosinophils (%) (Auto) 0 % (0-3) Basophils (%) (Auto) 1 % (0-3) Neutrophils # (Auto) 9.5 x10^3uL (1.8-7.7) Lymphocytes # (Auto) 1.7 x10^3/uL (1.0-4.8) Monocytes # (Auto) 0.7 x10^3/uL (0.0-1.1) Eosinophils # (Auto) 0.0 x10^3/uL (0.0-0.7) Basophils # (Auto) 0.1 x10^3/uL (0.0-0.2) Sodium Level 139 mmol/L (136-145) Potassium Level 3.9 mmol/L (3.5-5.1) Chloride Level 104 mmol/L (98-107) Carbon Dioxide Level 24 mmol/L (21-32) Anion Gap 11 (6-14) Blood Urea Nitrogen 10 mg/dL (7-20) Creatinine 0.5 mg/dL (0.6-1.0) Estimated GFR (Cockcroft-Gault) 143.0 BUN/Creatinine Ratio 20 (6-20) Glucose Level 95 mg/dL (70-99) Calcium Level 8.4 mg/dL (8.5-10.1) Total Bilirubin 0.3 mg/dL (0.2-1.0) Aspartate Amino Transf (AST/SGOT) 17 U/L (15-37) Alanine Aminotransferase (ALT/SGPT) 28 U/L (14-59) Alkaline Phosphatase 77 U/L (46-116) Total Protein 6.0 g/dL (6.4-8.2) Albumin 2.4 g/dL (3.4-5.0) Albumin/Globulin Ratio 0.7 (1.0-1.7) Amylase Level 59 U/L (25-115) Lipase 181 U/L (73-393) Assessment/Plan Assessment/Plan cholelithiasis, borderline wall thickening on sono, possible cholecystitis 29 weeks , will review with VARSHA Schroeder MD 01/03/19 1156: CONSULT Assessment/Plan Assessment/Plan Pt seen and examined. Agree with Ms. Garcia's note Pt reports feeling somewhat better, no N/V abd soft, gravid, min TTP RUQ standard practice has encouraged avoiding operative in 3rd trimester, and recent studies reinforce this with worse outcomes for mother and child Recommend bland diet and supportive care with plans for cholecystectomy pending . Thanks for consult! ELISEO GARCIA APRN Jan 03, 2019 08:42 VARSHA PRATT MD Jan 03, 2019 11:56
[2019-01-03] MEDS ORDERED: MORPHINE SULFATE 4 MG/ML VIAL. IV ONE (09:30)
--- NOTE | 2019-01-03 13:57 | PDOC1 ---
OB - History Hx of Present Care: Limited Care Ultrasounds: No ultrasounds Obstetrical Complications: Other (N/V and abd pain) Medical Complications: None Past Family/Social History * Past Medical, Surgical, Family and Obstetric Histories reviewed from chart. Blood Type: Unknown Rubella: Unknown RPR/VDRL: Unknown GBS Status: Unknown HBsAG: Unknown OB - Chief Complaint & HPI Date of Admission: Date of Admission: Jan 03, 2019 at 00:48 Chief Complaint/History : 4 Para: 0 EGA: 29 Reason for admission: observation, other (N/V and abd pain) Admission Nurse Assessment Rev: Yes OB - Admission Exam Physical Exam Vitals: VS - Last 72 Hours, by Label Date Time Temp Pulse Resp B/P (MAP) Pulse Ox O2 Delivery O2 Flow Rate FiO2 01/03/19 10:05 16 Room Air 01/03/19 09:35 16 Room Air 01/03/19 06:53 16 Room Air 01/03/19 06:23 18 01/03/19 02:12 18 Room Air HEENT: Normal Heart: Regular Rate Lungs: Clear Abdomen: Gravid, Soft, Tender (RUQ tenderness with palpation) Extremities: Edema Reflexes: Normal Cervical Dilatation: None Effacement: 0% Station: Ballotable Membranes: Intact Heart Rate: Normal Accelerations: Accelerations Present Decelerations: No decelerations Contractions on Admission: None Text A: 29 wks IUP Cholelithiasis Dehydration P: Observation for rehydration with IV fluids and antiemetics. Consult General surgery for cholelithiasis. OB sono today. When tolerating PO, then d/c home. Recommend bland diet, low fat diet and no fried foods. She will f/u [facility] [place] [facility] for OB care. ROMEO MORENO Jr, MD Jan 03, 2019 13:57
== END 2019-01-03 15:25 | disposition home or self-care (01) ==
LOC: 3 SO LND 00:48
PROVIDERS: ADMIT Obstetrics & Gynecology; ATTEND Obstetrics & Gynecology
DX: O21.2 Late vomiting of pregnancy (principal); O26.893 Other specified pregnancy related conditions, third trimester; R10.13 Epigastric pain; M54.9 Dorsalgia, unspecified; Z3A.29 29 weeks gestation of pregnancy
CPT/HCPCS: 36415; 76705; 76815; 80053; 80307; 81001; 82150; 83690; 85025; 86850; 86900; 86901; 87086; 96361; 96365; 96366; 96375; 96376; C9113; G0378; G0379; J0290; J2270; J7120

== ENCOUNTER 2019-03-17 11:08 | Inpatient (IN) | payer SELFPAY ==
[~2019-03-17] VITALS: Ht 149.9 cm; Wt 74.8 kg
--- NOTE | 2019-03-17 13:16 | RAD ---
Ultrasound biophysical profile score, 03/17/2019: History: Decreased movement The limited exam of the gravid uterus demonstrates a single fetus in a cephalic orientation. The heart rate was 124 bpm. The placenta lies posteriorly extending into the fundal region. The DAV was calculated at 17.3. The measurements suggest a gestational age of 39-40 weeks. The weight was estimated a 8 pounds and 5 ounces +/- 20 ounces. The following biophysical profile scores were obtained: breathing movements-2 motion-2 tone-2 Amniotic fluid volume-2 Total score-8 out of 8 IMPRESSION: The ultrasound component of the biophysical profile score is 8 out of 8.
[2019-03-17 13:27] VITALS: BP 98/60
--- NOTE | 2019-03-17 13:33 | PDOC1 ---
OB - History Hx of Present Care: Good Care Ultrasounds: Normal mid trimester US Obstetrical Complications: Other (decreased movement) Medical Complications: None Past Family/Social History * Past Medical, Surgical, Family and Obstetric Histories reviewed from chart. Blood Type: Unknown Rubella: Immune RPR/VDRL: Negative GBS Status: Negative HBsAG: Negative OB - Chief Complaint & HPI Date of Admission: Date of Admission: March 17, 2019 at 11:08 Chief Complaint/History : 4 Para: 0 EGA: 40 Reason for admission: section Indication for : other (decreased movement; pt. elective c/s) Admission Nurse Assessment Rev: Yes OB - Admission Exam Physical Exam Vitals: VS - Last 72 Hours, by Label Date Time Temp Pulse Resp B/P (MAP) Pulse Ox O2 Delivery O2 Flow Rate FiO2 03/17/19 13:27 97.8 83 18 98/60 (73) Room Air 97.8 HEENT: Normal Heart: Regular Rate Lungs: Clear Abdomen: Gravid, Non tender Extremities: Edema Reflexes: Normal Cervical Dilatation: 2cm Effacement: 75% Station: -3 Membranes: Intact Heart Rate: Normal Accelerations: Accelerations Present Decelerations: No decelerations Contractions on Admission: 6-10 Minutes Apart Text A: 40 wks IUP Decreased movement P: Admit for elective c/s ROMEO MORENO Jr, MD March 17, 2019 13:33
[2019-03-17] MEDS ORDERED: PNV1TABL25 PO (14:22)
[2019-03-17] MEDS ORDERED: LEVO75TA5 PO (14:23)
[2019-03-17 14:25] LABS: HEMOGLOBIN 10.7 g/dL (12.0-15.5); RED BLOOD COUNT 3.84 x10^6/uL (3.50-5.40); WHITE BLOOD COUNT 10.5 x10^3/uL (4.0-11.0)
[2019-03-17] MEDS ORDERED: CITRIC ACID/SODIUM CITRATE 30 ML SOLUTION. PO ONE (14:30)
[2019-03-17] MEDS ORDERED: IV RINGERS,LACTATED 1000ML 1,000 ML IV SCH (14:30)
[2019-03-17] MEDS ORDERED: ceFAZolin 2GM PREMIX 2 GM/50 ML BAG IV ONE (15:00)
[2019-03-17 15:52] LABS: BILIRUBIN,URINE NEGATIVE (NEG); CLARITY,URINE CLEAR; COLOR,URINE YELLOW; NITRITE,URINE NEGATIVE (NEG); PH,URINE 6.5; PROTEIN,URINE NEGATIVE (NEG-TRACE); UROBILINOGEN,URINE 0.2 mg/dL (0.2 mg/dL)
[2019-03-17 16:08] LABS: BACTERIA,URINE MODERATE /HPF (0-FEW); RBC,URINE OCC /HPF (0-2); SQUAMOUS EPITHELIAL CELL,UR OCC /LPF
[2019-03-17] MEDS ORDERED: OXYTOCIN 10 UNIT/ML VIAL. ONE ×3 (16:18→17:32)
[2019-03-17] MEDS ORDERED: fentaNYL PF VIAL 100 MCG/2 ML VIAL ONE ×2 (16:22→18:27)
[2019-03-17] MEDS ORDERED: MORPHINE PF 5 MG/10 ML VIAL. ONE (16:22)
[2019-03-17] MEDS: IV RINGERS,LACTATED 1000ML 1,000 ML IV SCH (16:58)
[2019-03-17] MEDS ORDERED: ONDANSETRON PF 4 MG/2 ML VIAL. ONE (17:28)
[2019-03-17] MEDS ORDERED: FAMOTIDINE 20 MG/2 ML VIAL ONE (17:28)
[2019-03-17] MEDS ORDERED: 0.9 % SODIUM CHLORIDE 20 ML VIAL. IJ ONE (17:42)
--- NOTE | 2019-03-17 18:02 | PDOC4 ---
OB Operative Note Date: March 17, 2019 PRE OP DIAGNOSIS: Other (Decreased FM and Elective c/s) POST OP DIAGNOSIS: Other (Same) OPERATION PERFORMED: [facility] Surgeon Dr. Vidales Anesthesia: Regional (Spinal) Blood Loss 700 ml Specimen placenta and OB Findings: Position (Vertex), Sex (Male), (8/9), Weight (7 Lb 5 oz) Complications none Additional Remarks pt. stable ROMEO VIDALES Jr, MD March 17, 2019 18:02
[2019-03-17] MEDS ORDERED: diphenhydrAMINE ORAL ELIXIR 12.5 MG/5 ML ML PO PRN (18:15)
[2019-03-17] MEDS ORDERED: 0.9 % SODIUM CHLORIDE 10 ML DISP.SYRIN. IV PRN (18:15)
[2019-03-17] MEDS ORDERED: OXYTOCIN 30 UNIT/500 ML PREMIX 500 ML IV PRN (18:15)
[2019-03-17] MEDS ORDERED: SIMETHICONE 80 MG TAB.CHEW PO PRN (18:15)
[2019-03-17] MEDS ORDERED: ZOLPIDEM 5 MG TABLET. PO PRN (18:15)
[2019-03-17] MEDS ORDERED: MAG HYDROX/ALUMINUM HYD/SIMETH 30 ML ORAL.SUSP PO PRN (18:15)
[2019-03-17] MEDS ORDERED: KETOROLAC 30 MG/ML VIAL. IV PRN (18:15)
[2019-03-17] MEDS ORDERED: ONDANSETRON PF 4 MG/2 ML VIAL. IV PRN (18:15)
[2019-03-17] MEDS ORDERED: fentaNYL PF VIAL 100 MCG/2 ML VIAL IV ONE (18:45)
[2019-03-17] MEDS ORDERED: fentaNYL PF VIAL 100 MCG/2 ML VIAL IV PRN (18:45)
[2019-03-17 19:03] LABS: BASO # 0.1 x10^3/uL (0.0-0.2); BASO % 1 % (0-3); EOS % 0 % (0-3); HEMATOCRIT 35.6 % (36.0-47.0); HEMOGLOBIN 11.2 g/dL (12.0-15.5); LYMPH # 4.2 x10^3/uL (1.0-4.8); LYMPH % 24 % (24-48); MEAN CORPUSCULAR HEMOGLOBIN 28 pg (25-35); MEAN CORPUSCULAR HGB CONC 32 g/dL (31-37); MEAN CORPUSCULAR VOLUME 87 fL (79-100); MONO # 0.8 x10^3/uL (0.0-1.1); MONO % 4 % (0-9); NEUT # 12.7 x10^3uL (1.8-7.7); NEUT % 71 % (31-73); PLATELET COUNT 317 x10^3/uL (140-400); RED BLOOD COUNT 4.09 x10^6/uL (3.50-5.40); RED CELL DISTRIBUTION WIDTH 15.7 % (11.5-14.5); WHITE BLOOD COUNT 17.9 x10^3/uL (4.0-11.0)
[2019-03-17 19:12] LABS: PROTHROMBIN TIME PATIENT 13.3 SEC (11.7-14.0)
[2019-03-17 19:15] LABS: ALBUMIN 2.7 g/dL (3.4-5.0); ALBUMIN/GLOBULIN RATIO 0.6 (1.0-1.7); CALCIUM 8.9 mg/dL (8.5-10.1); CREATININE 0.9 mg/dL (0.6-1.0); GFR 72.1; MAGNESIUM 1.5 mg/dL (1.8-2.4); TOTAL BILIRUBIN 0.2 mg/dL (0.2-1.0); TOTAL PROTEIN 7.4 g/dL (6.4-8.2)
[2019-03-17 19:16] LABS: POTASSIUM 2.9 mmol/L (3.5-5.1)
--- NOTE | 2019-03-17 19:17 | OP ---
DATE OF SURGERY: 03/17/2019 PREOPERATIVE DIAGNOSES: 1. 40 weeks' intrauterine . 2. Decreased movement. 3. Elective primary section. POSTOPERATIVE DIAGNOSES: 1. 40 weeks' intrauterine . 2. Decreased movement. 3. Elective primary section. PROCEDURE: Primary low transverse section. SURGEON: Romeo Vidales MD. ANESTHESIA: Spinal. ESTIMATED BLOOD LOSS: 700 mL. COMPLICATIONS: None. FINDINGS: Viable male , Apgars 8 and 9, weight 7 pounds 5 ounces. Three-vessel cord placenta delivered manually intact. SUMMARY: A 34-year-old 4, A3 at 40 weeks' gestation with decreased movement and desired elective section. The patient was counseled on risks, benefits and expectations and voiced her clear understanding to proceed. DESCRIPTION OF PROCEDURE: The patient was taken to surgery suite and placed in dorsal supine position and she was prepped with ChloraPrep and draped in sterile fashion. After adequate anesthesia, a Pfannenstiel skin incision was made with scalpel down to and through the fascia. Fascia was extended laterally using curved Vargas scissors. The superior edge of the fascia was grasped with two Annelise clamps and dissected free of the abdominal rectus muscles using blunt dissection along with Bovie cautery. Same process took place inferiorly. The abdominal rectus muscle was dissected bluntly at the midline. Peritoneum was grasped with two hemostats, entered sharply with Metzenbaum scissors. This incision was extended superiorly as well as inferiorly. The Amanuel ring retractor was placed. A low transverse hysterotomy incision was made with scalpel down to the infant. Hysterotomy incision was extended laterally and superiorly digitally. With the aid of fundal pressure, the 's head was delivered in a smooth atraumatic manner. Nuchal cord x 1 was visualized and reduced. With additional fundal pressure, the anterior shoulder was delivered followed by posterior shoulder and the rest of male infant was delivered. The was suctioned with bulb syringe orally and nasally. Umbilical cord was clamped twice and cut and viable male was handed to waiting nursing staff. Umbilical cord blood was then obtained. Three-vessel cord placenta was delivered manually intact. The uterus then exteriorized, cleared of clot and debris with a moist lap. The hysterotomy incision was reapproximated using #1 Vicryl suture in running locked fashion. The uterus palpated firm. Fallopian tubes, ovaries appeared normal bilaterally. Posterior cul-de-sac was cleared of clot and debris with a moist lap. The uterus was then returned to the abdomen. The hysterotomy incision was reviewed and was hemostatic. Pericolic gutters were cleared of clot and debris with a moist lap. The Amanuel ring retractor was removed. The peritoneum was reapproximated using 1 Vicryl suture in running fashion. Fascia was reapproximated with 0 Vicryl suture in running fashion. Skin was reapproximated using 4-0 Vicryl suture in subcuticular manner. Prevena wound VAC was placed. The patient tolerated the procedure well, was sent to recovery room in stable condition. Sponge and needle count correct x 3. ROMEO VIDALES MD DR: MICHELLE/eddy JOB#: [id number] / [id number]
--- NOTE | 2019-03-17 19:24 | PDOC2 ---
NEUROLOGY CONSULT Date of Admission Date of Admission DATE: 03/17/19 TIME: 19:05 Reason for Consult Reason for Consult: IMPRESSION: Metabolic encephalopathy. Seizure x 1, new onset. Severe headache. Vomiting. HTN? Post . Obesity. RECOMMENDATIONS/PLAN: HCT w/o contrast STAT to help rule out SAH. Brain MRI w/o contrast to help rule out CVA. MRV maybe needed. BP control. Keep good hydration. Keppra 500 mg IV q12, may continue for 1 week to 1 month. HISTORY OF THE PRESENT ILLNESS: This is a 34-y-old Amharic origin female patient just had a baby delivered about 1 hour 40 minutes ago when neurology was requested for an emergency consult. She complained severe headaches, and her nurse state she had some vomiting. She then LOC and had a seizure for less than 1 minute but went postictal state when neurology was called. No focalized motor deficits was noted or reported. The patient dose not speak Swedish and was unable to provide information. PAST MEDICAL HISTORY: Obesity. PAST SURGERY HISTORY: No major surgery recently. ALLERGY: Unknown MEDICATIONS: Refer to [facility] FAMILY HISTORY: Non contributory. SOCIAL HISTORY: Unknown. REVIEW OF SYSTEMS: Constitutional: Obese.. Head: No traumatic brain or head injury. Skin: No edema, or rash. Ear: No infection. Eyes: No vision loss or color blindness. Nose: No bleeding or purulent discharges. Hearing: No hearing decrease. Neck: No injury. Breast: No history of cancer, masses,or discharges. Cardiac: HTN? Pulmonary: No COPD. GI: No GI ulcer, GI bleeding. Urinary/genital: UTI. Endocrinologic: Obesity. Skeletomuscular: No muscular atrophy, deformity. Neurological: see HP. Psychiatric: Denies drug use/abuse. Otherwise, not [id number] review of systems. PHYSICAL EXAMINATION: General appearance is in acute distress. HEENT: Normocephalic and nontraumatic. Eyes, nose, ears, and throat are unremarkable. Neck is supple. No lymphadenopathy. No crepitus. Cardiovascular: S1, S2, regular rate and rhythm. Pulmonary: Clear to auscultation bilaterally. Abdomen: Bowel sounds are positive. Extremities: No rash or edema. No restriction of range of motion NEUROLOGICAL EXAMINATION: Eyes open. Reactions were very slow. Not oriented to time, place but knew her sister at bedside. PERRL. EOMI. CN: no acute focal findings. Muscle tone: within normal. Muscle strength: 5, but unable to perform pronate drift test due to not follow commands. DTR: 2- UE, 0-1 at knee still in sedation state. Plantar reflex: Flexor response bilaterally Gait: not examined in bed. Sensory exam: Withdraw response to stimuli. Not able to access cerebellar signs due to her cognitive impairment. F-T-N test not performed due to not follow command. Current Medications Current Medications Current Medications Ringer's Solution 1,000 ml @ 1,000 mls/hr Q1H IV Last administered on 03/17/19at 14:25; Start 03/17/19 at 14:30; Stop 03/17/19 at 15:29; Status DC Cefazolin Sodium/ Dextrose 50 ml @ 100 mls/hr 1X ONCE IV ; Start 03/17/19 at 14:30; Stop 03/17/19 at 14:59; Status DC Citric Acid/ Sodium Citrate (Bicitra) 30 ml 1X ONCE PO Last administered on 03/17/19at 16:49; Start 03/17/19 at 14:30; Stop 03/17/19 at 14:31; Status DC Oxytocin (Pitocin) 10 unit STK-MED ONCE .ROUTE ; Start 03/17/19 at 16:18; Stop 03/17/19 at 16:19; Status DC Oxytocin (Pitocin) 10 unit STK-MED ONCE .ROUTE ; Start 03/17/19 at 16:20; Stop 03/17/19 at 16:21; Status DC Morphine Sulfate (Morphine Preservative Free) 5 mg STK-MED ONCE .ROUTE ; Start 03/17/19 at 16:22; Stop 03/17/19 at 16:23; Status DC Fentanyl Citrate (Fentanyl 2ml Vial) 100 mcg STK-MED ONCE .ROUTE ; Start 03/17/19 at 16:22; Stop 03/17/19 at 16:23; Status DC Ringer's Solution 1,000 ml @ 100 mls/hr Q10H IV Last administered on 03/17/19at 16:58; Start 03/17/19 at 17:00 Famotidine (Pepcid Vial) 20 mg STK-MED ONCE .ROUTE ; Start 03/17/19 at 17:28; Stop 03/17/19 at 17:29; Status DC Ondansetron HCl (Zofran) 4 mg STK-MED ONCE .ROUTE ; Start 03/17/19 at 17:28; Stop 03/17/19 at 17:29; Status DC Oxytocin (Pitocin) 10 unit STK-MED ONCE .ROUTE ; Start 03/17/19 at 17:32; Stop 03/17/19 at 17:33; Status DC Sodium Chloride (SODIUM CHLORIDE 20ml) 20 ml STK-MED ONCE IJ ; Start 03/17/19 at 17:42; Stop 03/17/19 at 17:43; Status DC Sodium Chloride (Normal Saline Flush) 3 ml QSHIFT PRN IV AFTER MEDS AND BLOOD DRAWS; Start 03/17/19 at 18:15 Oxytocin/Sodium Chloride 500 ml @ 125 mls/hr CONT PRN IV EXCESSIVE POST- BLEEDING; Start 03/17/19 at 18:15; Stop 03/18/19 at 02:14 Ibuprofen (Motrin) 800 mg PRN Q4HRS PRN PO INFLAMMATION; Start 03/17/19 at 18:15 Ondansetron HCl (Zofran) 4 mg PRN Q6HRS PRN IV NAUSEA/VOMITING; Start 03/17/19 at 18:15 Docusate Sodium (Colace) 100 mg PRN BID PRN PO CONSTIPATION; Start 03/17/19 at 18:15 Al Hydroxide/Mg Hydroxide (Mylanta Plus Xs) 30 ml PRN Q4HRS PRN PO HEARTBURN / GAS; Start 03/17/19 at 18:15 Simethicone (Gas-X) 80 mg PRN AFTMEALHC PRN PO GAS / BLOATING; Start 03/17/19 at 18:15 Diphenhydramine HCl (Benadryl Oral Elixir) 12.5 mg PRN Q6HRS PRN PO ITCHING; Start 03/17/19 at 18:15 Ferrous Sulfate (Feosol) 325 mg BIDWMEALS PO ; Start 03/18/19 at 08:00 Zolpidem Tartrate (Ambien) 5 mg PRN QHS PRN PO INSOMNIA, MAY REPEAT X1; Start 03/17/19 at 18:15 Oxycodone/ Acetaminophen (Percocet 5/325) 2 tab PRN Q4HRS PRN PO MODERATE PAIN, SEVERE PAIN; Start 03/17/19 at 18:15 Ketorolac Tromethamine (Toradol 30mg Vial) 30 mg PRN Q6HRS PRN IV MILD PAIN 1-3 Last administered on 03/17/19at 18:34; Start 03/17/19 at 18:15; Stop 03/22/19 at 18:14 Fentanyl Citrate (Fentanyl 2ml Vial) 100 mcg STK-MED ONCE .ROUTE ; Start 03/17/19 at 18:27; Stop 03/17/19 at 18:28; Status DC Fentanyl Citrate (Fentanyl 2ml Vial) 50 mcg PRN Q2HR PRN IV MODERATE-SEVERE PAIN; Start 03/17/19 at 18:45 Fentanyl Citrate (Fentanyl 2ml Vial) 50 mcg 1X ONCE IV ; Start 03/17/19 at 18:45; Stop 03/17/19 at 18:46; Status DC Active Scripts Active Reported Levothyroxine Sodium 75 Mcg Tablet 1 Tab PO DAILY Tablet (Pnv Cmb#95/Ferrous Fumarate/Fa) 1 Each Tablet 1 Tab PO DAILY Allergies Allergies: Allergies Coded Allergies Type Severity Reaction Last Updated Verified Iodine and Iodide Containing Produc Adverse Reaction Severe Rash 05/12/17 Yes ROS Review of System The patient denies any associated fevers, chills, headache, ear pain, rhinorrhea, sore throat, stiff neck, productive cough, chest pain, shortness of breath, back or flank pain, abdominal pain, nausea, vomiting, diarrhea, constipation, dysuria, rash, numbness, weakness, tingling, incontinence, difficulty ambulating, or diaphoresis. Physical Exam Physical Exam General: Well developed, well nourished, no acute distress, well appearing HEENT: Pupils equally round and reactive to light, EOMI, no discharge, normal conjunctiva Neck: Supple, no nuchal rigidity, no JVD, trachea midline, no tenderness Cardiac: RRR, no murmurs, no gallops, no rubs Chest/Lungs: CTAB, no wheeze, no rhonchi, no crackles Abdomen: soft, non-distended, no guarding, no peritoneal signs, non-tender Back: No tenderness Extremities: no edema, pulses intact, non-tender,capillary refill <3 sec bilateral upper and lower extremities, Neuro: Alert and oriented x 4, no focal deficits, normal speech Vitals Vitals: Vital Signs Date Time Temp Pulse Resp B/P (MAP) Pulse Ox O2 Delivery O2 Flow Rate FiO2 03/17/19 13:27 97.8 83 18 98/60 (73) Room Air 97.8 Labs Labs Laboratory Tests Test 03/17/19 14:00 03/17/19 15:40 White Blood Count 10.5 x10^3/uL (4.0-11.0) Red Blood Count 3.84 x10^6/uL (3.50-5.40) Hemoglobin 10.7 g/dL (12.0-15.5) Hematocrit 32.0 % (36.0-47.0) Mean Corpuscular Volume 84 fL (79-100) Mean Corpuscular Hemoglobin 28 pg (25-35) Mean Corpuscular Hemoglobin Concent 33 g/dL (31-37) Red Cell Distribution Width 16.0 % (11.5-14.5) Platelet Count 311 x10^3/uL (140-400) Treponema pallidum Antibody Nonreactive (Nonreactive) Urine Color Yellow Urine Clarity Clear Urine pH 6.5 Urine Specific [place] 1.010 Urine Protein Negative mg/dL (NEG-TRACE) Urine Glucose (UA) Negative mg/dL (NEG) Urine Ketones (Stick) 15 mg/dL (NEG) Urine Blood Negative (NEG) Urine Nitrite Negative (NEG) Urine Bilirubin Negative (NEG) Urine Urobilinogen Dipstick 0.2 mg/dL (0.2 mg/dL) Urine Leukocyte Esterase Large (NEG) Urine RBC Occ /HPF (0-2) Urine WBC 11-20 /HPF (0-4) Urine Squamous Epithelial Cells Occ /LPF Urine Bacteria Moderate /HPF (0-FEW) Urine Mucus Slight /LPF Laboratory Tests Test 03/17/19 14:00 03/17/19 15:40 White Blood Count 10.5 x10^3/uL (4.0-11.0) Red Blood Count 3.84 x10^6/uL (3.50-5.40) Hemoglobin 10.7 g/dL (12.0-15.5) Hematocrit 32.0 % (36.0-47.0) Mean Corpuscular Volume 84 fL (79-100) Mean Corpuscular Hemoglobin 28 pg (25-35) Mean Corpuscular Hemoglobin Concent 33 g/dL (31-37) Red Cell Distribution Width 16.0 % (11.5-14.5) Platelet Count 311 x10^3/uL (140-400) Treponema pallidum Antibody Nonreactive (Nonreactive) Urine Color Yellow Urine Clarity Clear Urine pH 6.5 Urine Specific [place] 1.010 Urine Protein Negative mg/dL (NEG-TRACE) Urine Glucose (UA) Negative mg/dL (NEG) Urine Ketones (Stick) 15 mg/dL (NEG) Urine Blood Negative (NEG) Urine Nitrite Negative (NEG) Urine Bilirubin Negative (NEG) Urine Urobilinogen Dipstick 0.2 mg/dL (0.2 mg/dL) Urine Leukocyte Esterase Large (NEG) Urine RBC Occ /HPF (0-2) Urine WBC 11-20 /HPF (0-4) Urine Squamous Epithelial Cells Occ /LPF Urine Bacteria Moderate /HPF (0-FEW) Urine Mucus Slight /LPF MONIQUE PRATHER MD March 17, 2019 19:24
[2019-03-17] MEDS ORDERED: levETIRAcetam 500 MG in IV DEXTROSE 5% 100ML 100 ML IV SCH (19:30)
--- NOTE | 2019-03-17 19:30 | RAD ---
CT scan of the head without contrast 03/17/2019 Clinical History: Seizure . Technique: Unenhanced, contiguous, 5 mm axial sections were obtained through the head. One or more of the following individualized dose reduction techniques were utilized for this study: 1. Automated exposure control. 2. Adjustment of the mA and/or kV according to patient size. 3. Use of iterative reconstruction technique. Findings: The ventricles and sulci are within normal limits in size and configuration. No focal area of abnormal attenuation is seen involving the brain parenchyma. No extra-axial fluid collection is seen. No skull fracture is seen. Impression: Negative study. Electronically signed by: Jeremie Aguero MD (03/17/2019 7:27 PM) [facility]
[2019-03-17] MEDS: POTASSIUM CL 40MEQ IN 0.9%NACL 1,000 ML IV SCH (20:08)
[2019-03-17 20:15] VITALS: BP 127/61
--- NOTE | 2019-03-17 20:21 | EKG ---
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
[2019-03-17 20:30] VITALS: BP 96/56
[2019-03-17 20:31] LABS: BASE EXCESS ABG -7 mmol/L (-3-3); HCO3 ABG 16 mmol/L (21-28); PCO2 ABG 25 mmHg (35-46); PO2 ABG 95 mmHg (85-108); SAT O2 ABG 96 % (92-99)
[2019-03-17 20:45] VITALS: BP 99/56
[2019-03-17 20:48] LABS: % BANDS 1 % (0-9); % LYMPHS 26 % (24-48); % MONOS 4 % (0-10); % SEGS 69 % (35-66); ANISOCYTOSIS SLIGHT; PLT ESTIMATE ADEQUATE (ADEQUATE); TOXIC GRANULATION SLIGHT
[2019-03-17 21:00] VITALS: BP 100/53
[2019-03-17] MEDS: IBUPROFEN 400 MG TABLET. PO PRN (21:00)
--- NOTE | 2019-03-17 21:11 | RAD ---
MRI of the brain without contrast 03/17/2019 Clinical History: seizure. Technique: Unenhanced T1-weighted sagittal and axial and T2-weighted, FLAIR, gradient echo and diffusion-weighted axial images of the brain were obtained. Additionally FLAIR and T2-weighted coronal images of the temporal lobes were obtained. Findings: Comparison is made to patient's CT scan of the head performed earlier today. Images from the study are degraded by patient motion. The ventricles and sulci are within normal limits in size and configuration. No area of significant abnormal signal intensity is seen involving brain parenchyma. No extra-axial fluid collection is seen. There is no MRI evidence of acute ischemia/infarction. T2-weighted and FLAIR coronal images through the temporal lobes are within normal limits. The paranasal sinuses are essentially clear. Normal flow voids are seen within the major vascular structures surrounding the brain parenchyma. Impression: Negative study. Electronically signed by: Jeremie Aguero MD (03/17/2019 9:08 PM) [facility]
[2019-03-17 21:14] LABS: FIO2 ABG 21
[2019-03-17 21:15] VITALS: BP 107/53
[2019-03-18] VITALS (24 sets, daily range): BP systolic 85–140; BP diastolic 44–83
[2019-03-18] MEDS: IV RINGERS,LACTATED 1000ML 1,000 ML IV SCH ×3 (03:00→23:30)
[2019-03-18] MEDS: oxyCODONE/APAP 5/325 1 TAB TABLET PO PRN ×3 (03:15→23:21)
[2019-03-18] MEDS: IBUPROFEN 400 MG TABLET. PO PRN ×3 (03:29→19:04)
[2019-03-18] MEDS: POTASSIUM CL 40MEQ IN 0.9%NACL 1,000 ML IV SCH ×2 (04:10→09:20)
[2019-03-18 05:05] LABS: ALBUMIN 2.2 g/dL (3.4-5.0); ALBUMIN/GLOBULIN RATIO 0.7 (1.0-1.7); CALCIUM 8.5 mg/dL (8.5-10.1); CREATININE 0.7 mg/dL (0.6-1.0); GFR 96.4; POTASSIUM 4.7 mmol/L (3.5-5.1); TOTAL BILIRUBIN 0.3 mg/dL (0.2-1.0); TOTAL PROTEIN 5.3 g/dL (6.4-8.2)
[2019-03-18] MEDS ORDERED: MAGNESIUM SULFATE 4GM 100 ML IV ONE (06:45)
[2019-03-18 07:05] LABS: BARBITURATES NEG (NEG); BENZODIAZEPINES NEG (NEG); CANNABINOIDS NEG (NEG); COCAINE NEG (NEG); METHADONE NEG (NEG); OPIATES POS (NEG); PHENCYCLIDINE NEG (NEG)
[2019-03-18 07:08] LABS: AMPHETAMINE/METHAMPHETAMINE NEG (NEG)
[2019-03-18 07:20] LABS: CREATININE,RANDOM URINE 62.4 mg/dL (Not Establ.)
--- NOTE | 2019-03-18 08:44 | PDOC ---
Provider Note Provider Note POD # 1 S/P C/S Post op seizure activity cleared by neurology Dressing CDI VSS Transfer back to 3N Vital Sign - Last 24 Hours 03/17/19 03/17/19 03/17/19 03/17/19 13:27 18:40 20:15 20:30 Temp 97.8 97.9 97.8 97.9 Pulse 83 76 76 Resp 18 12 12 B/P (MAP) 98/60 (73) 127/61 (83) 96/56 (69) Pulse Ox 100 100 100 O2 Delivery Room Air NonRebreather Mask Room Air Room Air O2 Flow Rate 10.0 03/17/19 03/17/19 03/17/19 03/17/19 20:30 20:45 21:00 21:15 Pulse 80 76 88 Resp 16 12 14 B/P (MAP) 99/56 (70) 100/53 (69) 107/53 (71) Pulse Ox 97 99 100 O2 Delivery Room Air Room Air Room Air Room Air 03/18/19 03/18/19 03/18/19 03/18/19 00:00 00:01 01:00 02:00 Temp 98.0 98.0 Pulse 70 71 68 Resp 12 12 14 B/P (MAP) 99/54 (69) 120/77 (91) 140/78 (98) Pulse Ox 99 98 98 O2 Delivery Room Air Room Air Room Air Room Air 03/18/19 03/18/19 03/18/19 03/18/19 03:00 04:00 04:00 05:00 Temp 97.9 97.9 Pulse 76 70 70 Resp 12 16 12 B/P (MAP) 133/65 (87) 110/52 (71) 114/67 (83) Pulse Ox 98 99 98 O2 Delivery Room Air Room Air Room Air Room Air 03/18/19 06:00 Pulse 67 Resp 12 B/P (MAP) 99/61 (74) Pulse Ox 98 O2 Delivery Room Air Intake and Output 03/17/19 03/17/19 03/18/19 14:59 22:59 06:59 Intake Total 1715 ml Output Total 815 ml Balance 900 ml CBC - BMP 03/17/19 14:00 03/17/19 18:45 03/18/19 04:30 SHELLEY RODRIGUEZ MD March 18, 2019 08:44
--- NOTE | 2019-03-18 08:50 | NUR ---
Order received to transfer patient from Dr. Garcia upon rounding. Order received to start regular diet. Report given to Kaylin ROBISON, patient going to room 343 via wheelchair. No seizure activity through night, no headache at this time. Pain is controlled with Ibuprofen. VS WNL. See assessments, VS. Patient's sister is at the bedside. No questions or concerns at this time.
[2019-03-18] MEDS ORDERED: levETIRAcetam 500 MG in IV DEXTROSE 5% 100ML 100 ML IV SCH (09:00)
[2019-03-18] MEDS: FERROUS SULFATE 325 MG TABLET. PO SCH ×2 (09:19→19:04)
[2019-03-18] MEDS: MAGNESIUM SULFATE 20GM 500 ML IV SCH ×2 (10:40→20:47)
[2019-03-18 10:48] LABS: BASO # 0.1 x10^3/uL (0.0-0.2); BASO % 1 % (0-3); EOS % 0 % (0-3); HEMATOCRIT 24.8 % (36.0-47.0); HEMOGLOBIN 8.4 g/dL (12.0-15.5); LYMPH # 2.1 x10^3/uL (1.0-4.8); LYMPH % 21 % (24-48); MEAN CORPUSCULAR HEMOGLOBIN 29 pg (25-35); MEAN CORPUSCULAR HGB CONC 34 g/dL (31-37); MEAN CORPUSCULAR VOLUME 85 fL (79-100); MONO # 0.5 x10^3/uL (0.0-1.1); MONO % 5 % (0-9); NEUT # 7.2 x10^3uL (1.8-7.7); NEUT % 73 % (31-73); PLATELET COUNT 245 x10^3/uL (140-400); RED BLOOD COUNT 2.92 x10^6/uL (3.50-5.40); RED CELL DISTRIBUTION WIDTH 15.9 % (11.5-14.5); WHITE BLOOD COUNT 9.9 x10^3/uL (4.0-11.0)
[2019-03-18] MEDS: DOCUSATE SODIUM 100 MG CAPSULE. PO PRN (14:42)
[2019-03-18] MEDS: ASPIRIN 325 MG TABLET PO SCH (14:43)
--- NOTE | 2019-03-18 15:09 | PDOC ---
PROGRESS NOTES Assessment Assessment Metabolic encephalopathy. Seizure x 1, new onset on 03/17/19. Severe headache. Vomiting. HTN? Post . Obesity. RECOMMENDATIONS/PLAN: BP control. Keep good hydration. Keppra 500 mg PO bid x 2 weeks, then 250 mg bid x 1 week, then stop. No driving for 6 months anytime after a seizure. FU with PCP. FU with Neurology if has further seizures. HCT and brain MRI on 03/17/19: Negative. HISTORY OF THE PRESENT ILLNESS: This is a 34-y-old [place] origin female patient just had a baby delivered about 1 hour 40 minutes ago when neurology was requested for an emergency consult. She complained severe headaches, and her nurse state she had some vomiting. She then LOC and had a seizure for less than 1 minute but went postictal state when neurology was called. No focalized motor deficits was noted or reported. The patient dose not speak Mexican and was unable to provide information. No seizures over night. Headaches resolved. PAST MEDICAL HISTORY: Obesity. PAST SURGERY HISTORY: No major surgery recently. ALLERGY: Unknown MEDICATIONS: Refer to [facility] FAMILY HISTORY: Non contributory. SOCIAL HISTORY: Unknown. REVIEW OF SYSTEMS: Constitutional: Obese. Head: No traumatic brain or head injury. Skin: No edema, or rash. Ear: No infection. Eyes: No vision loss or color blindness. Nose: No bleeding or purulent discharges. Hearing: No hearing decrease. Neck: No injury. Breast: No history of cancer, masses,or discharges. Cardiac: HTN? Pulmonary: No COPD. GI: No GI ulcer, GI bleeding. Urinary/genital: UTI. Endocrinologic: Obesity. Skeletomuscular: No muscular atrophy, deformity. Neurological: see HP. Psychiatric: Denies drug use/abuse. Otherwise, not [id number] review of systems. PHYSICAL EXAMINATION: General appearance is in no acute distress. HEENT: Normocephalic and nontraumatic. Eyes, nose, ears, and throat are unremarkable. Neck is supple. No lymphadenopathy. No crepitus. Cardiovascular: S1, S2, regular rate and rhythm. Pulmonary: Clear to auscultation bilaterally. Abdomen: Bowel sounds are positive. Extremities: No rash or edema. No restriction of range of motion NEUROLOGICAL EXAMINATION: Awake. Oriented to time, place and person. PERRL. EOMI. CN: no acute focal findings. Muscle tone: within normal. Muscle strength: 5. DTR: 2 Plantar reflex: Flexor response bilaterally Gait: not examined in bed. Sensory exam: No abnormal findings. No cerebellar signs elicited. F-T-N test fine. Objective Objective Vital Signs Date Time Temp Pulse Resp B/P (MAP) Pulse Ox O2 Delivery O2 Flow Rate FiO2 03/18/19 12:15 89 18 97/62 (74) Room Air 03/18/19 10:46 99 03/18/19 10:41 97.7 97.7 03/17/19 18:40 10.0 Intake and Output 03/18/19 07:00 Intake Total 1715 ml Output Total 815 ml Balance 900 ml Intake Oral 480 ml IV Total 1235 ml Output Urine Total 815 ml Vitals Signs Vitals VS - Last 72 Hours, by Label Date Time Temp Pulse Resp B/P (MAP) Pulse Ox O2 Delivery O2 Flow Rate FiO2 03/18/19 12:15 89 18 97/62 (74) Room Air 03/18/19 12:00 69 94/56 (69) Room Air 03/18/19 11:45 63 97/50 (66) Room Air 03/18/19 11:30 61 86/44 (58) Room Air 03/18/19 11:15 71 18 104/58 (73) Room Air 03/18/19 11:00 65 16 93/51 (65) Room Air 03/18/19 10:46 94 18 102/56 (71) 99 Room Air 03/18/19 10:41 97.7 91 18 126/75 (92) 98 Room Air 97.7 03/18/19 09:00 71 16 85/54 (64) 100 Room Air 03/18/19 08:00 98.2 74 11 104/62 (76) 98 Room Air 98.2 03/18/19 08:00 Room Air 03/18/19 07:00 72 15 94/50 (65) 100 Room Air 03/18/19 06:00 67 12 99/61 (74) 98 Room Air 03/18/19 05:00 70 12 114/67 (83) 98 Room Air 03/18/19 04:00 97.9 70 16 110/52 (71) 99 Room Air 97.9 03/18/19 04:00 Room Air 03/18/19 03:00 76 12 133/65 (87) 98 Room Air 03/18/19 02:00 68 14 140/78 (98) 98 Room Air 03/18/19 01:00 71 12 120/77 (91) 98 Room Air 03/18/19 00:01 98.0 70 12 99/54 (69) 99 Room Air 98.0 03/18/19 00:00 Room Air 03/17/19 21:15 88 14 107/53 (71) 100 Room Air 03/17/19 21:00 76 12 100/53 (69) 99 Room Air 03/17/19 20:45 80 16 99/56 (70) 97 Room Air 03/17/19 20:30 Room Air 03/17/19 20:30 76 12 96/56 (69) 100 Room Air 03/17/19 20:15 97.9 76 12 127/61 (83) 100 Room Air 97.9 03/17/19 18:40 100 NonRebreather Mask 10.0 03/17/19 13:27 97.8 83 18 98/60 (73) Room Air 97.8 Laboratory Laboratory Laboratory Tests Test 03/17/19 15:40 03/17/19 18:45 03/17/19 19:04 03/17/19 22:05 Urine Color Yellow Urine Clarity Clear Urine pH 6.5 Urine Specific [place] 1.010 Urine Protein Negative mg/dL (NEG-TRACE) Urine Glucose (UA) Negative mg/dL (NEG) Urine Ketones (Stick) 15 mg/dL (NEG) Urine Blood Negative (NEG) Urine Nitrite Negative (NEG) Urine Bilirubin Negative (NEG) Urine Urobilinogen Dipstick 0.2 mg/dL (0.2 mg/dL) Urine Leukocyte Esterase Large (NEG) Urine RBC Occ /HPF (0-2) Urine WBC 11-20 /HPF (0-4) Urine Squamous Epithelial Cells Occ /LPF Urine Bacteria Moderate /HPF (0-FEW) Urine Mucus Slight /LPF White Blood Count 17.9 x10^3/uL (4.0-11.0) Red Blood Count 4.09 x10^6/uL (3.50-5.40) Hemoglobin 11.2 g/dL (12.0-15.5) Hematocrit 35.6 % (36.0-47.0) Mean Corpuscular Volume 87 fL (79-100) Mean Corpuscular Hemoglobin 28 pg (25-35) Mean Corpuscular Hemoglobin Concent 32 g/dL (31-37) Red Cell Distribution Width 15.7 % (11.5-14.5) Platelet Count 317 x10^3/uL (140-400) Neutrophils (%) (Auto) 71 % (31-73) Lymphocytes (%) (Auto) 24 % (24-48) Monocytes (%) (Auto) 4 % (0-9) Eosinophils (%) (Auto) 0 % (0-3) Basophils (%) (Auto) 1 % (0-3) Neutrophils # (Auto) 12.7 x10^3uL (1.8-7.7) Lymphocytes # (Auto) 4.2 x10^3/uL (1.0-4.8) Monocytes # (Auto) 0.8 x10^3/uL (0.0-1.1) Eosinophils # (Auto) 0.0 x10^3/uL (0.0-0.7) Basophils # (Auto) 0.1 x10^3/uL (0.0-0.2) Segmented Neutrophils % 69 % (35-66) Band Neutrophils % 1 % (0-9) Lymphocytes % 26 % (24-48) Monocytes % 4 % (0-10) Toxic Granulation Slight Platelet Estimate Adequate (ADEQUATE) Anisocytosis Slight Prothrombin Time 13.3 SEC (11.7-14.0) Prothromb Time International Ratio 1.0 (0.8-1.1) Activated Partial Thromboplast Time 27 SEC (24-38) Sodium Level 141 mmol/L (136-145) Potassium Level 2.9 mmol/L (3.5-5.1) Chloride Level 105 mmol/L (98-107) Carbon Dioxide Level 12 mmol/L (21-32) Anion Gap 24 (6-14) Blood Urea Nitrogen 11 mg/dL (7-20) Creatinine 0.9 mg/dL (0.6-1.0) Estimated GFR (Cockcroft-Gault) 72.1 BUN/Creatinine Ratio 12 (6-20) Glucose Level 100 mg/dL (70-99) Calcium Level 8.9 mg/dL (8.5-10.1) Magnesium Level 1.5 mg/dL (1.8-2.4) Total Bilirubin 0.2 mg/dL (0.2-1.0) Aspartate Amino Transf (AST/SGOT) 19 U/L (15-37) Alanine Aminotransferase (ALT/SGPT) 17 U/L (14-59) Alkaline Phosphatase 161 U/L (46-116) Total Protein 7.4 g/dL (6.4-8.2) Albumin 2.7 g/dL (3.4-5.0) Albumin/Globulin Ratio 0.6 (1.0-1.7) Thyroid Stimulating Hormone (TSH) 3.207 uIU/mL (0.358-3.74) O2 Saturation 96 % (92-99) Arterial Blood pH 7.43 (7.35-7.45) Arterial Blood pCO2 at Patient Temp 25 mmHg (35-46) Arterial Blood pO2 at Patient Temp 95 mmHg (85-108) Arterial Blood HCO3 16 mmol/L (21-28) Arterial Blood Base Excess -7 mmol/L (-3-3) FiO2 21 Glucose (Fingerstick) 79 mg/dL (70-99) Test 03/18/19 04:30 03/18/19 06:30 03/18/19 09:36 03/18/19 10:40 Sodium Level 141 mmol/L (136-145) Potassium Level 4.7 mmol/L (3.5-5.1) Chloride Level 107 mmol/L (98-107) Carbon Dioxide Level 21 mmol/L (21-32) Anion Gap 13 (6-14) Blood Urea Nitrogen 12 mg/dL (7-20) Creatinine 0.7 mg/dL (0.6-1.0) Estimated GFR (Cockcroft-Gault) 96.4 BUN/Creatinine Ratio 17 (6-20) Glucose Level 86 mg/dL (70-99) Calcium Level 8.5 mg/dL (8.5-10.1) Total Bilirubin 0.3 mg/dL (0.2-1.0) Aspartate Amino Transf (AST/SGOT) 20 U/L (15-37) Alanine Aminotransferase (ALT/SGPT) 15 U/L (14-59) Alkaline Phosphatase 120 U/L (46-116) Total Protein 5.3 g/dL (6.4-8.2) Albumin 2.2 g/dL (3.4-5.0) Albumin/Globulin Ratio 0.7 (1.0-1.7) Urine Random Creatinine 62.4 mg/dL (Not Establ.) Urine Random Total Protein 9.3 mg/dL (Not Establ.) Urine Protein/Creatinine Ratio 149 mg/g (0-200) Urine Opiates Screen Pos (NEG) Urine Methadone Screen Neg (NEG) Urine Barbiturates Neg (NEG) Urine Phencyclidine Screen Neg (NEG) Urine Amphetamine/Methamphetamine Neg (NEG) Urine Benzodiazepines Screen Neg (NEG) Urine Cocaine Screen Neg (NEG) Urine Cannabinoids Screen Neg (NEG) Urine Ethyl Alcohol Neg (NEG) Glucose (Fingerstick) 73 mg/dL (70-99) White Blood Count 9.9 x10^3/uL (4.0-11.0) Red Blood Count 2.92 x10^6/uL (3.50-5.40) Hemoglobin 8.4 g/dL (12.0-15.5) Hematocrit 24.8 % (36.0-47.0) Mean Corpuscular Volume 85 fL (79-100) Mean Corpuscular Hemoglobin 29 pg (25-35) Mean Corpuscular Hemoglobin Concent 34 g/dL (31-37) Red Cell Distribution Width 15.9 % (11.5-14.5) Platelet Count 245 x10^3/uL (140-400) Neutrophils (%) (Auto) 73 % (31-73) Lymphocytes (%) (Auto) 21 % (24-48) Monocytes (%) (Auto) 5 % (0-9) Eosinophils (%) (Auto) 0 % (0-3) Basophils (%) (Auto) 1 % (0-3) Neutrophils # (Auto) 7.2 x10^3uL (1.8-7.7) Lymphocytes # (Auto) 2.1 x10^3/uL (1.0-4.8) Monocytes # (Auto) 0.5 x10^3/uL (0.0-1.1) Eosinophils # (Auto) 0.0 x10^3/uL (0.0-0.7) Basophils # (Auto) 0.1 x10^3/uL (0.0-0.2) Medication Medications Current Medications Al Hydroxide/Mg Hydroxide (Mylanta Plus Xs) 30 ml PRN Q4HRS PRN PO HEARTBURN / GAS; Start 03/17/19 at 18:15 Aspirin (Hernandez Aspirin) 325 mg [id number] PO Last administered on 03/18/19at 1 4:43; Start 03/18/19 at 12:00 Diphenhydramine HCl (Benadryl Oral Elixir) 12.5 mg PRN Q6HRS PRN PO ITCHING; Start 03/17/19 at 18:15 Docusate Sodium (Colace) 100 mg PRN BID PRN PO CONSTIPATION Last administered on 03/18/19at 14:42; Start 03/17/19 at 18:15 Famotidine (Pepcid Vial) 20 mg STK-MED ONCE .ROUTE ; Start 03/17/19 at 17:28; Stop 03/17/19 at 17:29; Status DC Fentanyl Citrate (Fentanyl 2ml Vial) 50 mcg 1X ONCE IV ; Start 03/17/19 at 18:45; Stop 03/17/19 at 18:46; Status DC Fentanyl Citrate (Fentanyl 2ml Vial) 50 mcg PRN Q2HR PRN IV MODERATE-SEVERE PAIN; Start 03/17/19 at 18:45 Fentanyl Citrate (Fentanyl 2ml Vial) 100 mcg STK-MED ONCE .ROUTE ; Start 03/17/19 at 16:22; Stop 03/17/19 at 16:23; Status DC Fentanyl Citrate (Fentanyl 2ml Vial) 100 mcg STK-MED ONCE .ROUTE ; Start 03/17/19 at 18:27; Stop 03/17/19 at 18:28; Status DC Ferrous Sulfate (Feosol) 325 mg BIDWMEALS PO Last administered on 03/18/19at 09:19; Start 03/18/19 at 08:00 Ibuprofen (Motrin) 800 mg PRN Q4HRS PRN PO INFLAMMATION Last administered on 03/18/19at 09:20; Start 03/17/19 at 18:15 Ketorolac Tromethamine (Toradol 30mg Vial) 30 mg PRN Q6HRS PRN IV MILD PAIN 1-3 Last administered on 03/17/19at 18:34; Start 03/17/19 at 18:15; Stop 03/22/19 at 18:14 Levetiracetam (Keppra) 500 mg BID PO ; Start 03/18/19 at 21:00 Levetiracetam 500 mg/Dextrose 105 ml @ 420 mls/hr Q12HR IV Last administered on 03/17/19at 20:00; Start 03/17/19 at 19:30; Stop 03/18/19 at 04:15; Status DC Levetiracetam 500 mg/Dextrose 105 ml @ 420 mls/hr Q12HR IV Last administered on 03/18/19at 09:33; Start 03/18/19 at 09:00; Stop 03/18/19 at 13:46; Status DC Magnesium Sulfate 500 ml @ 50 mls/hr Q10H IV Last administered on 03/18/19at 10:40; Start 03/18/19 at 06:45 Magnesium Sulfate/ Dextrose 100 ml @ 25 mls/hr 1X ONCE IV Last administered on 03/18/19at 09:19; Start 03/18/19 at 06:45; Stop 03/18/19 at 10:44; Status DC Morphine Sulfate (Morphine Preservative Free) 5 mg STK-MED ONCE .ROUTE ; Start 03/17/19 at 16:22; Stop 03/17/19 at 16:23; Status DC Ondansetron HCl (Zofran) 4 mg PRN Q6HRS PRN IV NAUSEA/VOMITING Last administered on 03/17/19at 23:19; Start 03/17/19 at 18:15 Ondansetron HCl (Zofran) 4 mg STK-MED ONCE .ROUTE ; Start 03/17/19 at 17:28; Stop 03/17/19 at 17:29; Status DC Oxycodone/ Acetaminophen (Percocet 5/325) 2 tab PRN Q4HRS PRN PO MODERATE PAIN, SEVERE PAIN; Start 03/17/19 at 18:15 Oxytocin (Pitocin) 10 unit STK-MED ONCE .ROUTE ; Start 03/17/19 at 16:18; Stop 03/17/19 at 16:19; Status DC Oxytocin (Pitocin) 10 unit STK-MED ONCE .ROUTE ; Start 03/17/19 at 16:20; Stop 03/17/19 at 16:21; Status DC Oxytocin (Pitocin) 10 unit STK-MED ONCE .ROUTE ; Start 03/17/19 at 17:32; Stop 03/17/19 at 17:33; Status DC Oxytocin/Sodium Chloride 500 ml @ 125 mls/hr CONT PRN IV EXCESSIVE POST- BLEEDING; Start 03/17/19 at 18:15; Stop 03/18/19 at 02:14; Status DC Potassium Chloride/Sodium Chloride 1,000 ml @ 125 mls/hr Q8H IV Last administered on 03/18/19at 04:10; Start 03/17/19 at 19:30; Stop 03/18/19 at 13:56; Status DC Ringer's Solution 1,000 ml @ 100 mls/hr Q10H IV Last administered on 03/18/19at 10:32; Start 03/17/19 at 17:00 Simethicone (Gas-X) 80 mg PRN AFTMEALHC PRN PO GAS / BLOATING Last administered on 03/18/19at 14:42; Start 03/17/19 at 18:15 Sodium Chloride (Normal Saline Flush) 3 ml QSHIFT PRN IV AFTER MEDS AND BLOOD DRAWS; Start 03/17/19 at 18:15 Sodium Chloride (SODIUM CHLORIDE 20ml) 20 ml STK-MED ONCE IJ ; Start 03/17/19 at 17:42; Stop 03/17/19 at 17:43; Status DC Zolpidem Tartrate (Ambien) 5 mg PRN QHS PRN PO INSOMNIA, MAY REPEAT X1; Start 03/17/19 at 18:15 Comment Review of Relevant I have reviewed the following items dany (where applicable) has been applied. MONIQUE PRATHER MD March 18, 2019 15:09
[2019-03-18] MEDS: levETIRAcetam 500 MG TABLET PO SCH (22:05)
[2019-03-19 01:37] VITALS: BP 90/56
[2019-03-19 05:30] VITALS: BP 92/51
[2019-03-19] MEDS: FERROUS SULFATE 325 MG TABLET. PO SCH ×2 (07:47→18:18)
[2019-03-19] MEDS: ASPIRIN 325 MG TABLET PO SCH (07:47)
[2019-03-19] MEDS: DOCUSATE SODIUM 100 MG CAPSULE. PO PRN ×2 (07:48→18:18)
[2019-03-19] MEDS: levETIRAcetam 500 MG TABLET PO SCH (08:10)
[2019-03-19] MEDS: oxyCODONE/APAP 5/325 1 TAB TABLET PO PRN ×2 (08:28→12:07)
[2019-03-19] MEDS: IBUPROFEN 400 MG TABLET. PO PRN ×3 (08:28→22:58)
--- NOTE | 2019-03-19 09:15 | NUR ---
IV removal IV removed from right FA Addendum: 03/19/19 at 0919 by YANA SMITH RN Amended: Links added.
[2019-03-19 11:00] VITALS: BP 91/44
--- NOTE | 2019-03-19 11:44 | PDOC ---
OB Progress Note Date of Service 03/19/19 Time of Evaluation 1140 Notes PT. feeling better. Pain controlled. SHe reports feeling "foggy" on Keppra medication. Labs reviewed and normal. Lab Laboratory Tests Test 03/17/19 14:00 03/17/19 15:40 03/17/19 18:45 03/17/19 19:04 White Blood Count 10.5 x10^3/uL (4.0-11.0) 17.9 x10^3/uL (4.0-11.0) Red Blood Count 3.84 x10^6/uL (3.50-5.40) 4.09 x10^6/uL (3.50-5.40) Hemoglobin 10.7 g/dL (12.0-15.5) 11.2 g/dL (12.0-15.5) Hematocrit 32.0 % (36.0-47.0) 35.6 % (36.0-47.0) Mean Corpuscular Volume 84 fL (79-100) 87 fL (79-100) Mean Corpuscular Hemoglobin 28 pg (25-35) 28 pg (25-35) Mean Corpuscular Hemoglobin Concent 33 g/dL (31-37) 32 g/dL (31-37) Red Cell Distribution Width 16.0 % (11.5-14.5) 15.7 % (11.5-14.5) Platelet Count 311 x10^3/uL (140-400) 317 x10^3/uL (140-400) Treponema pallidum Antibody Nonreactive (Nonreactive) Urine Color Yellow Urine Clarity Clear Urine pH 6.5 Urine Specific [place] 1.010 Urine Protein Negative mg/dL (NEG-TRACE) Urine Glucose (UA) Negative mg/dL (NEG) Urine Ketones (Stick) 15 mg/dL (NEG) Urine Blood Negative (NEG) Urine Nitrite Negative (NEG) Urine Bilirubin Negative (NEG) Urine Urobilinogen Dipstick 0.2 mg/dL (0.2 mg/dL) Urine Leukocyte Esterase Large (NEG) Urine RBC Occ /HPF (0-2) Urine WBC 11-20 /HPF (0-4) Urine Squamous Epithelial Cells Occ /LPF Urine Bacteria Moderate /HPF (0-FEW) Urine Mucus Slight /LPF Neutrophils (%) (Auto) 71 % (31-73) Lymphocytes (%) (Auto) 24 % (24-48) Monocytes (%) (Auto) 4 % (0-9) Eosinophils (%) (Auto) 0 % (0-3) Basophils (%) (Auto) 1 % (0-3) Neutrophils # (Auto) 12.7 x10^3uL (1.8-7.7) Lymphocytes # (Auto) 4.2 x10^3/uL (1.0-4.8) Monocytes # (Auto) 0.8 x10^3/uL (0.0-1.1) Eosinophils # (Auto) 0.0 x10^3/uL (0.0-0.7) Basophils # (Auto) 0.1 x10^3/uL (0.0-0.2) Segmented Neutrophils % 69 % (35-66) Band Neutrophils % 1 % (0-9) Lymphocytes % 26 % (24-48) Monocytes % 4 % (0-10) Toxic Granulation Slight Platelet Estimate Adequate (ADEQUATE) Anisocytosis Slight Prothrombin Time 13.3 SEC (11.7-14.0) Prothromb Time International Ratio 1.0 (0.8-1.1) Activated Partial Thromboplast Time 27 SEC (24-38) Sodium Level 141 mmol/L (136-145) Potassium Level 2.9 mmol/L (3.5-5.1) Chloride Level 105 mmol/L (98-107) Carbon Dioxide Level 12 mmol/L (21-32) Anion Gap 24 (6-14) Blood Urea Nitrogen 11 mg/dL (7-20) Creatinine 0.9 mg/dL (0.6-1.0) Estimated GFR (Cockcroft-Gault) 72.1 BUN/Creatinine Ratio 12 (6-20) Glucose Level 100 mg/dL (70-99) Calcium Level 8.9 mg/dL (8.5-10.1) Magnesium Level 1.5 mg/dL (1.8-2.4) Total Bilirubin 0.2 mg/dL (0.2-1.0) Aspartate Amino Transf (AST/SGOT) 19 U/L (15-37) Alanine Aminotransferase (ALT/SGPT) 17 U/L (14-59) Alkaline Phosphatase 161 U/L (46-116) Total Protein 7.4 g/dL (6.4-8.2) Albumin 2.7 g/dL (3.4-5.0) Albumin/Globulin Ratio 0.6 (1.0-1.7) Thyroid Stimulating Hormone (TSH) 3.207 uIU/mL (0.358-3.74) O2 Saturation 96 % (92-99) Arterial Blood pH 7.43 (7.35-7.45) Arterial Blood pCO2 at Patient Temp 25 mmHg (35-46) Arterial Blood pO2 at Patient Temp 95 mmHg (85-108) Arterial Blood HCO3 16 mmol/L (21-28) Arterial Blood Base Excess -7 mmol/L (-3-3) FiO2 21 Test 03/17/19 22:05 03/18/19 04:30 03/18/19 05:00 03/18/19 06:30 Glucose (Fingerstick) 79 mg/dL (70-99) Sodium Level 141 mmol/L (136-145) Potassium Level 4.7 mmol/L (3.5-5.1) Chloride Level 107 mmol/L (98-107) Carbon Dioxide Level 21 mmol/L (21-32) Anion Gap 13 (6-14) Blood Urea Nitrogen 12 mg/dL (7-20) Creatinine 0.7 mg/dL (0.6-1.0) Estimated GFR (Cockcroft-Gault) 96.4 BUN/Creatinine Ratio 17 (6-20) Glucose Level 86 mg/dL (70-99) Calcium Level 8.5 mg/dL (8.5-10.1) Total Bilirubin 0.3 mg/dL (0.2-1.0) Aspartate Amino Transf (AST/SGOT) 20 U/L (15-37) Alanine Aminotransferase (ALT/SGPT) 15 U/L (14-59) Alkaline Phosphatase 120 U/L (46-116) Total Protein 5.3 g/dL (6.4-8.2) Albumin 2.2 g/dL (3.4-5.0) Albumin/Globulin Ratio 0.7 (1.0-1.7) Nasal Screen MRSA (PCR) Negative (Negative) Urine Random Creatinine 62.4 mg/dL (Not Establ.) Urine Random Total Protein 9.3 mg/dL (Not Establ.) Urine Protein/Creatinine Ratio 149 mg/g (0-200) Urine Opiates Screen Pos (NEG) Urine Methadone Screen Neg (NEG) Urine Barbiturates Neg (NEG) Urine Phencyclidine Screen Neg (NEG) Urine Amphetamine/Methamphetamine Neg (NEG) Urine Benzodiazepines Screen Neg (NEG) Urine Cocaine Screen Neg (NEG) Urine Cannabinoids Screen Neg (NEG) Urine Ethyl Alcohol Neg (NEG) Test 03/18/19 09:36 03/18/19 10:40 Glucose (Fingerstick) 73 mg/dL (70-99) White Blood Count 9.9 x10^3/uL (4.0-11.0) Red Blood Count 2.92 x10^6/uL (3.50-5.40) Hemoglobin 8.4 g/dL (12.0-15.5) Hematocrit 24.8 % (36.0-47.0) Mean Corpuscular Volume 85 fL (79-100) Mean Corpuscular Hemoglobin 29 pg (25-35) Mean Corpuscular Hemoglobin Concent 34 g/dL (31-37) Red Cell Distribution Width 15.9 % (11.5-14.5) Platelet Count 245 x10^3/uL (140-400) Neutrophils (%) (Auto) 73 % (31-73) Lymphocytes (%) (Auto) 21 % (24-48) Monocytes (%) (Auto) 5 % (0-9) Eosinophils (%) (Auto) 0 % (0-3) Basophils (%) (Auto) 1 % (0-3) Neutrophils # (Auto) 7.2 x10^3uL (1.8-7.7) Lymphocytes # (Auto) 2.1 x10^3/uL (1.0-4.8) Monocytes # (Auto) 0.5 x10^3/uL (0.0-1.1) Eosinophils # (Auto) 0.0 x10^3/uL (0.0-0.7) Basophils # (Auto) 0.1 x10^3/uL (0.0-0.2) Medications Current Medications Ringer's Solution 1,000 ml @ 1,000 mls/hr Q1H IV Last administered on 03/17/19at 14:25; Start 03/17/19 at 14:30; Stop 03/17/19 at 15:29; Status DC Cefazolin Sodium/ Dextrose 50 ml @ 100 mls/hr 1X ONCE IV ; Start 03/17/19 at 14:30; Stop 03/17/19 at 14:59; Status DC Citric Acid/ Sodium Citrate (Bicitra) 30 ml 1X ONCE PO Last administered on 03/17/19at 16:49; Start 03/17/19 at 14:30; Stop 03/17/19 at 14:31; Status DC Oxytocin (Pitocin) 10 unit STK-MED ONCE .ROUTE ; Start 03/17/19 at 16:18; Stop 03/17/19 at 16:19; Status DC Oxytocin (Pitocin) 10 unit STK-MED ONCE .ROUTE ; Start 03/17/19 at 16:20; Stop 03/17/19 at 16:21; Status DC Morphine Sulfate (Morphine Preservative Free) 5 mg STK-MED ONCE .ROUTE ; Start 03/17/19 at 16:22; Stop 03/17/19 at 16:23; Status DC Fentanyl Citrate (Fentanyl 2ml Vial) 100 mcg STK-MED ONCE .ROUTE ; Start 03/17/19 at 16:22; Stop 03/17/19 at 16:23; Status DC Ringer's Solution 1,000 ml @ 100 mls/hr Q10H IV Last administered on 03/18/19at 23:30; Start 03/17/19 at 17:00; Stop 03/19/19 at 09:20; Status DC Famotidine (Pepcid Vial) 20 mg STK-MED ONCE .ROUTE ; Start 03/17/19 at 17:28; Stop 03/17/19 at 17:29; Status DC Ondansetron HCl (Zofran) 4 mg STK-MED ONCE .ROUTE ; Start 03/17/19 at 17:28; Stop 03/17/19 at 17:29; Status DC Oxytocin (Pitocin) 10 unit STK-MED ONCE .ROUTE ; Start 03/17/19 at 17:32; Stop 03/17/19 at 17:33; Status DC Sodium Chloride (SODIUM CHLORIDE 20ml) 20 ml STK-MED ONCE IJ ; Start 03/17/19 at 17:42; Stop 03/17/19 at 17:43; Status DC Sodium Chloride (Normal Saline Flush) 3 ml QSHIFT PRN IV AFTER MEDS AND BLOOD DRAWS; Start 03/17/19 at 18:15 Oxytocin/Sodium Chloride 500 ml @ 125 mls/hr CONT PRN IV EXCESSIVE POST- BLEEDING; Start 03/17/19 at 18:15; Stop 03/18/19 at 02:14; Status DC Ibuprofen (Motrin) 800 mg PRN Q4HRS PRN PO INFLAMMATION Last administered on 03/19/19 08:28; Start 03/17/19 at 18:15 Ondansetron HCl (Zofran) 4 mg PRN Q6HRS PRN IV NAUSEA/VOMITING Last administered on 03/17/19at 23:19; Start 03/17/19 at 18:15 Docusate Sodium (Colace) 100 mg PRN BID PRN PO CONSTIPATION Last administered on 03/19/19 07:48; Start 03/17/19 at 18:15 Al Hydroxide/Mg Hydroxide (Mylanta Plus Xs) 30 ml PRN Q4HRS PRN PO HEARTBURN / GAS; Start 03/17/19 at 18:15 Simethicone (Gas-X) 80 mg PRN AFTMEALHC PRN PO GAS / BLOATING Last administered on 03/18/19at 14:42; Start 03/17/19 at 18:15 Diphenhydramine HCl (Benadryl Oral Elixir) 12.5 mg PRN Q6HRS PRN PO ITCHING; Start 03/17/19 at 18:15 Ferrous Sulfate (Feosol) 325 mg BIDWMEALS PO Last administered on 03/19/19at 07:47; Start 03/18/19 at 08:00 Zolpidem Tartrate (Ambien) 5 mg PRN QHS PRN PO INSOMNIA, MAY REPEAT X1; Start 03/17/19 at 18:15 Oxycodone/ Acetaminophen (Percocet 5/325) 2 tab PRN Q4HRS PRN PO MODERATE PAIN, SEVERE PAIN Last administered on 03/19/19 08:28; Start 03/17/19 at 18:15 Ketorolac Tromethamine (Toradol 30mg Vial) 30 mg PRN Q6HRS PRN IV MILD PAIN 1-3 Last administered on 03/17/19at 18:34; Start 03/17/19 at 18:15; Stop 03/22/19 at 18:14 Fentanyl Citrate (Fentanyl 2ml Vial) 100 mcg STK-MED ONCE .ROUTE ; Start 03/17/19 at 18:27; Stop 03/17/19 at 18:28; Status DC Fentanyl Citrate (Fentanyl 2ml Vial) 50 mcg PRN Q2HR PRN IV MODERATE-SEVERE PAIN; Start 03/17/19 at 18:45 Fentanyl Citrate (Fentanyl 2ml Vial) 50 mcg 1X ONCE IV ; Start 03/17/19 at 18:45; Stop 03/17/19 at 18:46; Status DC Levetiracetam 500 mg/Dextrose 105 ml @ 420 mls/hr Q12HR IV Last administered on 03/17/19at 20:00; Start 03/17/19 at 19:30; Stop 03/18/19 at 04:15; Status DC Levetiracetam 500 mg/Dextrose 105 ml @ 420 mls/hr Q12HR IV Last administered on 03/18/19at 09:33; Start 03/18/19 at 09:00; Stop 03/18/19 at 13:46; Status DC Potassium Chloride/Sodium Chloride 1,000 ml @ 125 mls/hr Q8H IV Last administered on 03/18/19at 04:10; Start 03/17/19 at 19:30; Stop 03/18/19 at 13:56; Status DC Magnesium Sulfate/ Dextrose 100 ml @ 25 mls/hr 1X ONCE IV Last administered on 03/18/19at 09:19; Start 03/18/19 at 06:45; Stop 03/18/19 at 10:44; Status DC Magnesium Sulfate 500 ml @ 50 mls/hr Q10H IV Last administered on 03/18/19at 20:47; Start 03/18/19 at 06:45; Stop 03/19/19 at 09:20; Status DC Aspirin (Hernandez Aspirin) 325 mg [id number] PO Last administered on 03/19/19at 07:47; Start 03/18/19 at 12:00 Levetiracetam (Keppra) 500 mg BID PO Last administered on 03/19/19at 08:10; Start 03/18/19 at 21:00 Active Scripts Active Reported Levothyroxine Sodium 75 Mcg Tablet 1 Tab PO DAILY Tablet (Pnv Cmb#95/Ferrous Fumarate/Fa) 1 Each Tablet 1 Tab PO DAILY Exam Abd: soft, non tender, fundus firm Prevena in place. Assessment POD#2 s/p c/s New onset seizure activity; Stable Plan of Care: Continue current Tx, Mgmt ROMEO MORENO Jr, MD March 19, 2019 11:43
[2019-03-19] MEDS ORDERED: diphenhydrAMINE 50 MG/ML VIAL IVP ONE (13:45)
[2019-03-19] MEDS: GABAPENTIN 300 MG CAPSULE. PO SCH ×2 (14:00→22:58)
--- NOTE | 2019-03-19 14:26 | NUR ---
1345 patient rounds while rounding patient states that she felt funny, and asked me to take her blood pressure- 97.4, 91/54, 83, 18, 98%. Said that her head and eyes felt heavy and blurry, her ears felt funny while rubbing down the side of her neck, and her throat hurt a little. Questioned patient on throat and ear discomfort and agreed that her ears felt itchy and throat felt small and tight. Also noticed her right cheek looked red possibly a new rash. Called DR Vidales regarding symptoms, orders received. 1400 After Benadryl given to patient through IV, patient had c/o being dizzy. Cold washcloth given to patient. Patient appears to not feel well emesis basin given to patient, and again patient states she feels very dizzy. Patient looks pale and stated she thinks she may pass out. Vitals taken and called for assistance. Vitals- 117/70, 94, 18, 100%. Patient was given a fan and another cold wash cloth. vitals taken again at 1410 -103/60, 94, 16, 100%. Patients color is back to normal and states she is feeling better but still a little weak and tired feeling. Patient denies eye, ear, and neck discomfort or dizziness. Will continue to monitor.
--- NOTE | 2019-03-19 16:34 | PDOC ---
PROGRESS NOTES Assessment Assessment Metabolic encephalopathy. Seizure x 1, new onset on 03/17/19. Severe headache. Vomiting. HTN? Post . Obesity. RECOMMENDATIONS/PLAN: BP control. Keep good hydration. Decrease Keppra to 250 mg PO bid x 2 weeks, then 250 mg q day x 1 week, then stop. ASA can be discontinued. No driving for 6 months anytime after a seizure. FU with PCP. FU with Neurology if has further seizures. HCT and brain MRI on 03/17/19: Negative. HISTORY OF THE PRESENT ILLNESS: This is a 34-y-old [place] origin female patient just had a baby delivered about 1 hour 40 minutes ago when neurology was requested for an emergency consult. She complained severe headaches, and her nurse state she had some vomiting. She then LOC and had a seizure for less than 1 minute but went postictal state when neurology was called. No focalized motor deficits was noted or reported. The patient dose not speak Albanian and was unable to provide information. No seizures since. Headaches resolved. PAST MEDICAL HISTORY: Obesity. PAST SURGERY HISTORY: No major surgery recently. ALLERGY: Unknown MEDICATIONS: Refer to [facility] FAMILY HISTORY: Non contributory. SOCIAL HISTORY: Unknown. REVIEW OF SYSTEMS: Constitutional: Obese. Head: No traumatic brain or head injury. Skin: No edema, or rash. Ear: No infection. Eyes: No vision loss or color blindness. Nose: No bleeding or purulent discharges. Hearing: No hearing decrease. Neck: No injury. Breast: No history of cancer, masses,or discharges. Cardiac: HTN? Pulmonary: No COPD. GI: No GI ulcer, GI bleeding. Urinary/genital: UTI. Endocrinologic: Obesity. Skeletomuscular: No muscular atrophy, deformity. Neurological: see HP. Psychiatric: Denies drug use/abuse. Otherwise, not [id number] review of systems. PHYSICAL EXAMINATION: General appearance is in no acute distress. HEENT: Normocephalic and nontraumatic. Eyes, nose, ears, and throat are unremarkable. Neck is supple. No lymphadenopathy. No crepitus. Cardiovascular: S1, S2, regular rate and rhythm. Pulmonary: Clear to auscultation bilaterally. Abdomen: Bowel sounds are positive. Extremities: No rash or edema. No restriction of range of motion NEUROLOGICAL EXAMINATION: Awake. Oriented to time, place and person. PERRL. EOMI. CN: no acute focal findings. Muscle tone: within normal. Muscle strength: 5. DTR: 2 Plantar reflex: Flexor response bilaterally Gait: not examined in bed. Sensory exam: No abnormal findings. No cerebellar signs elicited. F-T-N test fine. Objective Objective Vital Signs Date Time Temp Pulse Resp B/P (MAP) Pulse Ox O2 Delivery O2 Flow Rate FiO2 03/19/19 12:07 18 Room Air 03/19/19 11:00 97.7 79 91/44 (60) 99 97.7 Intake and Output 03/19/19 06:59 Intake Total 3810 ml Output Total 7005 ml Balance -3195 ml Intake Oral 3110 ml IV Total 100 ml Blood Product IV Normal Saline Flush 600 ml Output Urine Total 7005 ml Vitals Signs Vitals VS - Last 72 Hours, by Label Date Time Temp Pulse Resp B/P (MAP) Pulse Ox O2 Delivery O2 Flow Rate FiO2 03/19/19 12:07 18 Room Air 03/19/19 11:00 97.7 79 18 91/44 (60) 99 Room Air 97.7 03/19/19 08:28 20 Room Air 03/19/19 05:30 98.0 85 92/51 (65) 98 Room Air 98.0 03/19/19 04:00 Room Air 03/19/19 01:37 98.4 86 90/56 (67) 98 Room Air 98.4 03/18/19 23:30 99.3 84 17 90/50 (63) Room Air 99.3 03/18/19 23:21 17 Room Air 03/18/19 20:05 18 Room Air 03/18/19 19:30 97.9 83 16 91/52 (65) Room Air 97.9 03/18/19 19:04 18 Room Air 03/18/19 17:30 94 18 87/46 (60) 97 Room Air 03/18/19 14:30 97.3 94 18 99/51 (67) 99 Room Air 97.3 03/18/19 14:00 66 100/83 (89) 03/18/19 13:30 73 97/62 (74) 03/18/19 12:15 89 18 97/62 (74) Room Air 03/18/19 12:00 69 94/56 (69) Room Air 03/18/19 11:45 63 97/50 (66) Room Air 03/18/19 11:30 61 86/44 (58) Room Air 03/18/19 11:15 71 18 104/58 (73) Room Air 03/18/19 11:00 65 16 93/51 (65) Room Air 03/18/19 10:46 94 18 102/56 (71) 99 Room Air 03/18/19 10:41 97.7 91 18 126/75 (92) 98 Room Air 97.7 03/18/19 09:00 71 16 85/54 (64) 100 Room Air 03/18/19 08:00 98.2 74 11 104/62 (76) 98 Room Air 98.2 03/18/19 08:00 Room Air 03/18/19 07:00 72 15 94/50 (65) 100 Room Air Medication Medications Current Medications Diphenhydramine HCl (Benadryl) 50 mg 1X ONCE IVP Last administered on 03/19/19at 13:52; Start 03/19/19 at 13:45; Stop 03/19/19 at 13:49; Status DC Gabapentin (Neurontin) 300 mg TID PO ; Start 03/19/19 at 14:00 Levetiracetam (Keppra) 250 mg BID PO ; Start 03/19/19 at 21:00 Levetiracetam (Keppra) 500 mg BID PO Last administered on 03/19/19at 08:10; Start 03/18/19 at 21:00; Stop 03/19/19 at 12:22; Status DC Comment Review of Relevant I have reviewed the following items dany (where applicable) has been applied. MONIQUE PRATHRE MD March 19, 2019 16:34
[2019-03-19 18:49] VITALS: BP 99/52
[2019-03-19] MEDS: levETIRAcetam 250 MG TABLET PO SCH (22:03)
[2019-03-19 22:45] VITALS: BP 107/49
[2019-03-20 05:45] VITALS: BP 101/53
[2019-03-20] MEDS: GABAPENTIN 300 MG CAPSULE. PO SCH ×2 (08:13→13:48)
[2019-03-20] MEDS: IBUPROFEN 400 MG TABLET. PO PRN ×2 (08:13→15:38)
[2019-03-20] MEDS: levETIRAcetam 250 MG TABLET PO SCH (08:13)
[2019-03-20] MEDS: DOCUSATE SODIUM 100 MG CAPSULE. PO PRN (08:13)
[2019-03-20] MEDS: FERROUS SULFATE 325 MG TABLET. PO SCH (08:13)
--- NOTE | 2019-03-20 09:56 | PDOC3 ---
OB DISCHARGE SUMMARY DATE OF ADMISSION: 03/17/19 DATE OF DISCHARGE: 03/20/19 REASON FOR ADMISSION: section (decreased movment and elective section) INTRAPARTUM PROCEDURES: : Low Cerv Trans PROCEDURES: Others (CT, MRI and Neurology consult for new onset seizure activity) DISCHARGE DIAGNOSIS: Term Delivered DISCHARGE INFORMATION: Activity (ad tio), Diet (regular), Instructions (pelvic rest x 6 wks, no driving x 2 wks, no lifting > 20 lbs x 4 wks) HOSPITAL COURSE Term gestation delivered via section. Pt. had new onset seizure activity following section. Neurology started on Keppra for seizures. No additional seizure activity. ROMEO MORENO Jr, MD March 20, 2019 09:56
[2019-03-20] MEDS ORDERED: LEVE250T30 PO ×2 (10:00→17:30)
[2019-03-20] MEDS ORDERED: DOCU-109 PO (10:00)
[2019-03-20] MEDS ORDERED: IBUP-1027 PO (10:00)
[2019-03-20] MEDS ORDERED: GABA300C18 PO (10:00)
--- NOTE | 2019-03-20 10:01 | DISCH ---
DISCHARGE INSTRUCTIONS Condition on Discharge Condition on Discharge: Stable Activity After Discharge Activity Instructions for Disc: Activity as tolerated Lifting Instructions after Dis: No heavy lifting, No pulling or pushing, Do not lift >10 pounds Exercise Instruction after Dis: Walk 10 min, 3 x per day Driving Instructions after Dis: No driving for 2 weeks Weight Bearing Status after Di: Full weight bearing Diet after Discharge Diet after Discharge: Regular Wound Incision Care Wound/Incision Care: Ice to area for comfort Checks after Discharge Checks after discharge: Check your Temp as needed Contacting the DRMaximiliano after DC Call your doctor for: If your condition worsens Follow-Up Follow up with: Dr. Vidales in 2 weeks. ROMEO VIDALES Jr, MD March 20, 2019 10:00
[2019-03-20] MEDS ORDERED: PHENOL ORAL SPRAY 177ML BOTTLE. PO PRN (10:30)
[2019-03-20 13:55] VITALS: BP 105/61
--- NOTE | 2019-03-20 14:21 | PDOC ---
PROGRESS NOTES Assessment Assessment Metabolic encephalopathy. Seizure x 1, new onset on 03/17/19. Severe headache. Vomiting. HTN? Post . Obesity. RECOMMENDATIONS/PLAN: Keep good hydration. Decrease Keppra to 250 mg PO bid x 1 weeks, then 250 mg q day x 1 week, then stop. EEG was suggested, but can be done as out-patient base. ASA was discontinued. No driving for 6 months anytime after a seizure. FU with PCP. FU with Neurology if has further seizures. HCT and brain MRI on 03/17/19: Negative. HISTORY OF THE PRESENT ILLNESS: This is a 34-y-old Portuguese origin female patient just had a baby delivered about 1 hour 40 minutes ago when neurology was requested for an emergency consult. She complained severe headaches, and her nurse state she had some vomiting. She then LOC and had a seizure for less than 1 minute but went postictal state when neurology was called. No focalized motor deficits was noted or reported. The patient dose not speak Hong Konger and was unable to provide information. No seizures since. Headaches resolved. PAST MEDICAL HISTORY: Obesity. PAST SURGERY HISTORY: No major surgery recently. ALLERGY: Unknown MEDICATIONS: Refer to [facility] FAMILY HISTORY: Non contributory. SOCIAL HISTORY: Unknown. REVIEW OF SYSTEMS: Constitutional: Obese. Head: No traumatic brain or head injury. Skin: No edema, or rash. Ear: No infection. Eyes: No vision loss or color blindness. Nose: No bleeding or purulent discharges. Hearing: No hearing decrease. Neck: No injury. Breast: No history of cancer, masses,or discharges. Cardiac: HTN? Pulmonary: No COPD. GI: No GI ulcer, GI bleeding. Urinary/genital: UTI. Endocrinologic: Obesity. Skeletomuscular: No muscular atrophy, deformity. Neurological: see HP. Psychiatric: Denies drug use/abuse. Otherwise, not [id number] review of systems. PHYSICAL EXAMINATION: General appearance is in no acute distress. HEENT: Normocephalic and nontraumatic. Eyes, nose, ears, and throat are unremarkable. Neck is supple. No lymphadenopathy. No crepitus. Cardiovascular: S1, S2, regular rate and rhythm. Pulmonary: Clear to auscultation bilaterally. Abdomen: Bowel sounds are positive. Extremities: No rash or edema. No restriction of range of motion NEUROLOGICAL EXAMINATION: Awake. Oriented to time, place and person. PERRL. EOMI. CN: no acute focal findings. Muscle tone: within normal. Muscle strength: 5. DTR: 2 Plantar reflex: Flexor response bilaterally Gait: Normal. Sensory exam: No abnormal findings. No cerebellar signs elicited. F-T-N test fine. Objective Objective Vital Signs Date Time Temp Pulse Resp B/P (MAP) Pulse Ox O2 Delivery O2 Flow Rate FiO2 03/20/19 05:45 97.9 66 14 101/53 (69) 98 Room Air 97.9 Intake and Output 03/20/19 06:59 Output Total 500 ml Balance -500 ml Output Urine Total 500 ml # Voids 1 Vitals Signs Vitals VS - Last 72 Hours, by Label Date Time Temp Pulse Resp B/P (MAP) Pulse Ox O2 Delivery O2 Flow Rate FiO2 03/20/19 05:45 97.9 66 14 101/53 (69) 98 Room Air 97.9 03/19/19 22:45 99.5 77 16 107/49 (68) 98 Room Air 99.5 03/19/19 22:45 Room Air 03/19/19 18:49 98.6 87 16 99/52 (68) 99 Room Air 98.6 03/19/19 12:07 18 Room Air 03/19/19 11:00 97.7 79 18 91/44 (60) 99 Room Air 97.7 03/19/19 08:28 20 Room Air Medication Medications Current Medications Levetiracetam (Keppra) 250 mg BID PO Last administered on 03/20/19at 08:13; Start 03/19/19 at 21:00 Throat Lozenges (Chloraseptic) 1 spray PRN Q2HR PRN PO SORE THROAT Last administered on 03/20/19at 10:37; Start 03/20/19 at 10:30 Comment Review of Relevant I have reviewed the following items dany (where applicable) has been applied. MONIQUE PRATHER MD March 20, 2019 14:21
[2019-03-20 15:41] VITALS: BP 121/65
--- NOTE | 2019-03-20 16:40 | NUR ---
Discharge Note: Pt. denies needs or questions at this time. Pt. escorted via WC by Abiodun Hamilton RN to vehicle with NB in car seat, family, and belongings present. Pt. discharged home. Abiodun Holman RN
== END 2019-03-20 16:40 | disposition home or self-care (01) | DRG 786 ==
LOC: OBSVTOIN 11:08 → 3 SO LND 11:08 → 1 WEST ICU 20:00 → 3 NORTH 03-18 10:30
PROVIDERS: ADMIT Obstetrics & Gynecology; ATTEND Obstetrics & Gynecology
PROC: 10D00Z1 Extraction of Products of Conception, Low, Open Approach (ICD-10-PCS; principal; 2019-03-17)
DX: O36.8130 Decreased fetal movements, third trimester, not applicable or unspecified (principal); G93.41 Metabolic encephalopathy; O69.81X0 Labor and delivery complicated by cord around neck, without compression, not applicable or unspecified; O99.214 Obesity complicating childbirth; E66.9 Obesity, unspecified; Z37.0 Single live birth; Z3A.40 40 weeks gestation of pregnancy; Z79.899 Other long term (current) drug therapy; Z88.8 Allergy status to other drugs, medicaments and biological substances; R56.9 Unspecified convulsions
CPT/HCPCS: 36415; 36600; 70450; 70551; 76819; 80053; 80307; 81001; 82570; 82805; 82962; 83735; 84156; 84443; 85007; 85025; 85027; 85610; 85730; 86592; 86850; 86900; 86901; 87086; 87641; 93005; J0696; J1200; J1885; J1953; J2270; J2405; J2590; J3010; J3475; J3480; J3490; J7120

== ENCOUNTER → 2020-06-03 | Outpatient (CLI) | payer OTHER ==
[~2020-06-03] MED LIST changes: +DOCU-109 PO; +DOCU-153 PO; +GABA300C18 PO; +IBUP-1027 PO; +LEVE250T30 PO; +LEVO75TA5 PO; +OXYC1TAB15 PO; +PNV1TABL25 PO
== END | disposition home or self-care (01) ==
LOC: LAB 14:35
PROVIDERS: ATTEND Obstetrics & Gynecology
DX: O09.93 Supervision of high risk pregnancy, unspecified, third trimester (principal); Z01.818 Encounter for other preprocedural examination; Z11.59 Encounter for screening for other viral diseases; Z3A.00 Weeks of gestation of pregnancy not specified
CPT/HCPCS: U0003-CS

== ENCOUNTER 2020-06-06 09:30 | Inpatient (IN) | payer SELFPAY ==
[~2020-06-06] VITALS: Ht 157.5 cm; Wt 85.7 kg
[~2020-06-06 09:30] MED LIST changes: -DOCU-153 PO; -OXYC1TAB15 PO
[2020-06-06] MEDS ORDERED: IV RINGERS,LACTATED 1000ML 1,000 ML IV SCH (09:34)
[2020-06-06] MEDS ORDERED: CITRIC ACID/SODIUM CITRATE 30 ML SOLUTION. PO ONE (09:45)
[2020-06-06 10:15] VITALS: BP 109/53
[2020-06-06 10:24] LABS: HEMOGLOBIN 10.8 g/dL (12.0-15.5); RED BLOOD COUNT 3.86 x10^6/uL (3.50-5.40); RED CELL DISTRIBUTION WIDTH 15.2 % (11.5-14.5); WHITE BLOOD COUNT 10.5 x10^3/uL (4.0-11.0)
[2020-06-06] MEDS ORDERED: fentaNYL PF VIAL 100 MCG/2 ML VIAL ONE (10:25)
[2020-06-06] MEDS ORDERED: MORPHINE PF 10 MG/10 ML AMPUL. ONE (10:26)
[2020-06-06 10:28] LABS: BILIRUBIN,URINE SMALL (NEG); CLARITY,URINE CLOUDY; COLOR,URINE AMBER; NITRITE,URINE NEGATIVE (NEG); PROTEIN,URINE NEGATIVE (NEG-TRACE); UROBILINOGEN,URINE 0.2 mg/dL (0.2 mg/dL)
[2020-06-06] MEDS ORDERED: ePHEDrine PF IN SALINE 50 MG/10 ML SYRINGE. IV ONE (10:30)
[2020-06-06] MEDS ORDERED: PHENYLEPHRINE in 0.9% NACL PF 1 MG/10 ML SYRINGE. IV ONE (10:30)
[2020-06-06] MEDS ORDERED: OXYTOCIN 10 UNIT/ML VIAL. ONE ×2 (10:30→11:51)
[2020-06-06] MEDS ORDERED: ONDANSETRON PF 4 MG/2 ML VIAL. ONE (10:31)
[2020-06-06 10:46] LABS: BACTERIA,URINE MODERATE /HPF (0-FEW); RBC,URINE 0 /HPF (0-2); SQUAMOUS EPITHELIAL CELL,UR MANY /LPF; WBC,URINE >40 /HPF (0-4)
[2020-06-06 10:47] LABS: AMORPHOUS SEDIMENT,UR PRESENT /HPF
[2020-06-06] MEDS ORDERED: ceFAZolin 2GM PREMIX 2 GM/50 ML BAG IV ONE (11:00)
--- NOTE | 2020-06-06 11:10 | PDOC1 ---
OB - History Hx of Present Care: Limited Care Ultrasounds: Normal mid trimester US Obstetrical Complications: None Medical Complications: None Past Family/Social History * Past Medical, Surgical, Family and Obstetric Histories reviewed from chart. Blood Type: Unknown Rubella: Immune RPR/VDRL: Negative GBS Status: Negative HBsAG: Negative OB - Chief Complaint & HPI Date of Admission: Date of Admission: Jun 06, 2020 at 09:30 Chief Complaint/History : 5 Para: 1 EGA: 39 Reason for admission: section Admission Nurse Assessment Rev: Yes OB - Admission Exam Physical Exam HEENT: Normal Heart: Regular Rate Lungs: Clear Abdomen: Gravid, Non tender, Soft Extremities: Edema Reflexes: Normal Cervical Dilatation: None Effacement: 0% Station: -3 Membranes: Intact Heart Rate: Normal Accelerations: Accelerations Present Decelerations: No decelerations Contractions on Admission: >10 Minutes Apart Intensity: Mild Text A: 39 wks IUP Previous c/s x 1 P: Admit repeat c/s. ROMEO MORENO Jr, MD Jun 06, 2020 11:10
--- NOTE | 2020-06-06 12:29 | PDOC4 ---
OB Operative Note Date: Jun 06, 2020 PRE OP DIAGNOSIS: Previoujs C- section POST OP DIAGNOSIS: Previous C- section OPERATION PERFORMED: R [facility] Surgeon Dr. Vidales Vice President [employer] Equipment Mechanic: Valentin Anesthesia: Regional (Spinal) Blood Loss 600 ml Specimen and placenta OB Findings: Position (Vertex), Sex (Male), (9/9), Weight (3250 Gram) Complications none Additional Remarks pt. ROMEO Browne Jr, MD Jun 06, 2020 12:29
[2020-06-06] MEDS ORDERED: SIMETHICONE 80 MG TAB.CHEW PO PRN (12:30)
[2020-06-06] MEDS ORDERED: ZOLPIDEM 5 MG TABLET. PO PRN (12:30)
[2020-06-06] MEDS ORDERED: MAG HYDROX/ALUMINUM HYD/SIMETH 30 ML ORAL.SUSP PO PRN (12:30)
[2020-06-06] MEDS ORDERED: 0.9 % SODIUM CHLORIDE 10 ML DISP.SYRIN. IV PRN (12:30)
[2020-06-06] MEDS ORDERED: OXYTOCIN 30 UNIT/500 ML PREMIX 500 ML IV PRN (12:30)
[2020-06-06] MEDS ORDERED: diphenhydrAMINE ORAL ELIXIR 12.5 MG/5 ML ML PO PRN (12:30)
--- NOTE | 2020-06-06 12:38 | OP ---
DATE OF SURGERY: 06/06/2020 PREOPERATIVE DIAGNOSES: 1. A 39 weeks intrauterine . 2. Pervious section. POSTOPERATIVE DIAGNOSES: 1. A 39 weeks intrauterine . 2. Pervious section. PROCEDURE: Repeat low transverse section. SURGEON: Romeo Vidales MD METAL BONDING WORKER: Ortiz. ANESTHESIA: Spinal. ESTIMATED BLOOD LOSS: 600 mL. COMPLICATIONS: None. FINDINGS: Viable male , Apgars 9 and 9, weight 3250 grams. Three-vessel cord placenta delivered manually intact. SUMMARY: A 35-year-old 5, para 1 at 39 weeks, presented for repeat section. She was counseled on the risks, benefits and expectations and voiced clear understanding to proceed. DESCRIPTION OF PROCEDURE: The patient was taken to surgery suite and placed in dorsal supine position. She was prepped with ChloraPrep and draped in sterile fashion. After adequate anesthesia, Pfannenstiel skin incision was made with scalpel down to and through the fascia. Fascia was extended laterally using curved Vargas scissors. The superior edge of fascia was grasped with two Annelise clamps and dissected free of the abdominal rectus muscles using blunt dissection along with Bovie cautery. The same process took place inferiorly. Abdominal rectus muscle dissected bluntly at the midline. Peritoneum was grasped with 2 hemostats and entered sharply with Metzenbaum scissors. This incision was extended superiorly as well as inferiorly. The Amanuel ring retractor was placed. Low transverse hysterotomy incision was made with scalpel down to the infant. Hysterotomy incision was extended laterally and superiorly digitally. With the aid of fundal pressure, the infant's head was delivered in a smooth atraumatic manner. With additional fundal pressure, the anterior shoulder was delivered followed by posterior shoulder and rest of the male was delivered. Infant was suctioned with bulb syringe orally and nasally, umbilical cord was clamped twice and cut. Viable male was handed to waiting nursing staff. Umbilical cord blood was then obtained. Three-vessel cord placenta was delivered manually intact. The uterus was then exteriorized and cleared of clot and debris with a moist lap. Hysterotomy incision was reapproximated using #1 Vicryl suture in running locked fashion, imbricated layer of #1 Vicryl suture in a running fashion was performed for better hemostasis. The uterus palpated firm. Fallopian tubes and ovaries appeared normal bilaterally. Posterior cul-de-sac was cleared of clot and debris with moist lap. The uterus was then returned to the abdomen. Pericolic gutters were cleared of clot and debris with moist lap. The Amanuel ring retractor was removed. The hysterotomy incision was reviewed and was hemostatic. The peritoneum was reapproximated using #1 Vicryl suture in running fashion. The abdominal rectus muscles were reapproximated with #1 Vicryl suture in running fashion. Fascia was reapproximated using Stratafix in running fashion. Skin was reapproximated using 4-0 Vicryl suture in subcuticular manner. The patient tolerated the procedure well and was taken to recovery room in stable condition. Sponge and needle count correct x 3. ROMEO VIDALES MD DR: MICHELLE/eddy JOB#: [id number] / [id number]
[2020-06-06] MEDS: ONDANSETRON PF 4 MG/2 ML VIAL. IV PRN ×2 (14:13→20:06)
[2020-06-06] MEDS: KETOROLAC 30 MG/ML VIAL. IV PRN ×2 (14:14→20:06)
[2020-06-06 15:45] VITALS: BP 95/49
[2020-06-06 16:15] VITALS: BP 93/50
[2020-06-06 16:45] VITALS: BP 91/50
[2020-06-06] MEDS ORDERED: ACETAMINOPHEN 500 MG TABLET PO ONE (16:45)
[2020-06-06 17:45] VITALS: BP 95/50
[2020-06-06 20:00] VITALS: BP 103/59
[2020-06-07 00:47] VITALS: BP 86/49
[2020-06-07 05:52] VITALS: BP 92/61
[2020-06-07] MEDS: oxyCODONE/APAP 5/325 1 TAB TABLET PO PRN ×4 (05:58→20:34)
[2020-06-07] MEDS: IBUPROFEN 400 MG TABLET. PO PRN ×2 (05:59→20:20)
[2020-06-07 06:56] LABS: BASO % 0 % (0-3); EOS % 0 % (0-3); HEMATOCRIT 27.6 % (36.0-47.0); HEMOGLOBIN 9.1 g/dL (12.0-15.5); LYMPH # 1.6 x10^3/uL (1.0-4.8); LYMPH % 19 % (24-48); MEAN CORPUSCULAR HEMOGLOBIN 28 pg (25-35); MEAN CORPUSCULAR HGB CONC 33 g/dL (31-37); MEAN CORPUSCULAR VOLUME 85 fL (79-100); MONO # 0.4 x10^3/uL (0.0-1.1); MONO % 5 % (0-9); NEUT # 6.5 x10^3/uL (1.8-7.7); NEUT % 76 % (31-73); PLATELET COUNT 249 x10^3/uL (140-400); RED BLOOD COUNT 3.26 x10^6/uL (3.50-5.40); RED CELL DISTRIBUTION WIDTH 15.5 % (11.5-14.5); WHITE BLOOD COUNT 8.5 x10^3/uL (4.0-11.0)
[2020-06-07] MEDS ORDERED: ONDANSETRON ODT 4 MG TAB.RAPDIS. PO PRN (08:30)
[2020-06-07] MEDS: LEVOTHYROXINE 75 MCG TABLET PO SCH (09:00)
[2020-06-07] MEDS: MULTIVITAMIN with MINERAL TABLET. PO SCH (09:00)
[2020-06-07 10:20] VITALS: BP 99/63
[2020-06-07] MEDS: DOCUSATE SODIUM 100 MG CAPSULE. PO PRN (10:47)
--- NOTE | 2020-06-07 13:47 | PDOC ---
OB Progress Note Date of Service 06/07/20 Time of Evaluation 1345 Notes Pt. feeling well. No complaints. Pain moderately controlled. Lab Laboratory Tests Test 06/06/20 09:47 06/06/20 10:02 06/07/20 05:40 Urine Collection Type Unknown Urine Color Giselle Urine Clarity Cloudy Urine pH 6.0 (<5.0-8.0) Urine Specific [place] 1.025 (1.000-1.030) Urine Protein Negative mg/dL (NEG-TRACE) Urine Glucose (UA) Negative mg/dL (NEG) Urine Ketones (Stick) Trace mg/dL (NEG) Urine Blood Negative (NEG) Urine Nitrite Negative (NEG) Urine Bilirubin Small (NEG) Urine Urobilinogen Dipstick 0.2 mg/dL (0.2 mg/dL) Urine Leukocyte Esterase Large (NEG) Urine RBC 0 /HPF (0-2) Urine WBC >40 /HPF (0-4) Urine Squamous Epithelial Cells Many /LPF Urine Amorphous Sediment Present /HPF Urine Bacteria Moderate /HPF (0-FEW) White Blood Count 10.5 x10^3/uL (4.0-11.0) 8.5 x10^3/uL (4.0-11.0) Red Blood Count 3.86 x10^6/uL (3.50-5.40) 3.26 x10^6/uL (3.50-5.40) Hemoglobin 10.8 g/dL (12.0-15.5) 9.1 g/dL (12.0-15.5) Hematocrit 32.0 % (36.0-47.0) 27.6 % (36.0-47.0) Mean Corpuscular Volume 83 fL (79-100) 85 fL (79-100) Mean Corpuscular Hemoglobin 28 pg (25-35) 28 pg (25-35) Mean Corpuscular Hemoglobin Concent 34 g/dL (31-37) 33 g/dL (31-37) Red Cell Distribution Width 15.2 % (11.5-14.5) 15.5 % (11.5-14.5) Platelet Count 304 x10^3/uL (140-400) 249 x10^3/uL (140-400) Treponema pallidum Antibody Nonreactive (Nonreactive) Neutrophils (%) (Auto) 76 % (31-73) Lymphocytes (%) (Auto) 19 % (24-48) Monocytes (%) (Auto) 5 % (0-9) Eosinophils (%) (Auto) 0 % (0-3) Basophils (%) (Auto) 0 % (0-3) Neutrophils # (Auto) 6.5 x10^3/uL (1.8-7.7) Lymphocytes # (Auto) 1.6 x10^3/uL (1.0-4.8) Monocytes # (Auto) 0.4 x10^3/uL (0.0-1.1) Eosinophils # (Auto) 0.0 x10^3/uL (0.0-0.7) Basophils # (Auto) 0.0 x10^3/uL (0.0-0.2) Laboratory Tests Test 06/07/20 05:40 White Blood Count 8.5 x10^3/uL (4.0-11.0) Red Blood Count 3.26 x10^6/uL (3.50-5.40) Hemoglobin 9.1 g/dL (12.0-15.5) Hematocrit 27.6 % (36.0-47.0) Mean Corpuscular Volume 85 fL (79-100) Mean Corpuscular Hemoglobin 28 pg (25-35) Mean Corpuscular Hemoglobin Concent 33 g/dL (31-37) Red Cell Distribution Width 15.5 % (11.5-14.5) Platelet Count 249 x10^3/uL (140-400) Neutrophils (%) (Auto) 76 % (31-73) Lymphocytes (%) (Auto) 19 % (24-48) Monocytes (%) (Auto) 5 % (0-9) Eosinophils (%) (Auto) 0 % (0-3) Basophils (%) (Auto) 0 % (0-3) Neutrophils # (Auto) 6.5 x10^3/uL (1.8-7.7) Lymphocytes # (Auto) 1.6 x10^3/uL (1.0-4.8) Monocytes # (Auto) 0.4 x10^3/uL (0.0-1.1) Eosinophils # (Auto) 0.0 x10^3/uL (0.0-0.7) Basophils # (Auto) 0.0 x10^3/uL (0.0-0.2) Medications Current Medications Ringer's Solution 1,000 ml @ 1,000 mls/hr Q1H IV Last administered on 06/06/20at 10:47; Start 06/06/20 at 09:34; Stop 06/06/20 at 10:33; Status DC Cefazolin Sodium/ Dextrose 50 ml @ 100 mls/hr 1X ONCE IV ; Start 06/06/20 at 10:30; Stop 06/06/20 at 10:59; Status DC Citric Acid/ Sodium Citrate (Bicitra) 30 ml 1X ONCE PO Last administered on 06/06/20at 10:47; Start 06/06/20 at 09:45; Stop 06/06/20 at 09:46; Status DC Fentanyl Citrate (Fentanyl 2ml Vial) 100 mcg STK-MED ONCE .ROUTE ; Start 06/06/20 at 10:25; Stop 06/06/20 at 10:25; Status DC Morphine Sulfate (Morphine Preservative Free) 10 mg STK-MED ONCE .ROUTE ; Start 06/06/20 at 10:26; Stop 06/06/20 at 10:27; Status DC Ephedrine Sulfate (ePHEDrine PF IN SALINE SYRINGE) 50 mg STK-MED ONCE IV ; Start 06/06/20 at 10:30; Stop 06/06/20 at 10:30; Status DC Phenylephrine HCl (PHENYLEPHRINE in 0.9% NACL PF) 1 mg STK-MED ONCE IV ; Start 06/06/20 at 10:30; Stop 06/06/20 at 10:30; Status DC Oxytocin (Pitocin) 10 unit STK-MED ONCE .ROUTE ; Start 06/06/20 at 10:30; Stop 06/06/20 at 10:31; Status DC Ondansetron HCl (Zofran) 4 mg STK-MED ONCE .ROUTE ; Start 06/06/20 at 10:31; Stop 06/06/20 at 10:31; Status DC Oxytocin (Pitocin) 10 unit STK-MED ONCE .ROUTE ; Start 06/06/20 at 11:51; Stop 06/06/20 at 11:51; Status DC Sodium Chloride (Normal Saline Flush) 3 ml QSHIFT PRN IV AFTER MEDS AND BLOOD DRAWS; Start 06/06/20 at 12:30 Oxytocin/Sodium Chloride 500 ml @ 125 mls/hr CONT PRN IV EXCESSIVE POST- BLEEDING; Start 06/06/20 at 12:30; Stop 06/06/20 at 20:29; Status DC Ibuprofen (Motrin) 800 mg PRN Q8HRS PRN PO INFLAMMATION Last administered on 06/07/20at 05:59; Start 06/06/20 at 12:30 Ondansetron HCl (Zofran) 4 mg PRN Q6HRS PRN IV NAUSEA/VOMITING Last administered on 06/06/20at 20:06; Start 06/06/20 at 12:30 Docusate Sodium (Colace) 100 mg PRN BID PRN PO HARD STOOL Last administered on 06/07/20at 10:47; Start 06/06/20 at 12:30 Al Hydroxide/Mg Hydroxide (Mylanta Plus Xs) 30 ml PRN Q4HRS PRN PO HEARTBURN / GAS; Start 06/06/20 at 12:30 Simethicone (Gas-X) 80 mg PRN AFTMEALHC PRN PO GAS / BLOATING; Start 06/06/20 at 12:30 Diphenhydramine HCl (Benadryl Oral Elixir) 12.5 mg PRN Q6HRS PRN PO ITCHING; Start 06/06/20 at 12:30 Ferrous Sulfate (Feosol) 325 mg BIDWMEALS PO ; Start 06/06/20 at 17:00 Zolpidem Tartrate (Ambien) 5 mg PRN QHS PRN PO INSOMNIA, MAY REPEAT X1; Start 06/06/20 at 12:30 Oxycodone/ Acetaminophen (Percocet 5/325) 2 tab PRN Q4HRS PRN PO MODERATE PAIN, SEVERE PAIN Last administered on 06/07/20at 10:50; Start 06/06/20 at 12:30 Ketorolac Tromethamine (Toradol 30mg Vial) 30 mg PRN Q6HRS PRN IV PAIN Last administered on 06/06/20at 20:06; Start 06/06/20 at 12:30; Stop 06/11/20 at 12:29 Multivitamins (Thera M Plus) 1 tab DAILY PO ; Start 06/07/20 at 09:00 Acetaminophen (Tylenol) 1,000 mg 1X ONCE PO Last administered on 06/06/20at 16:22; Start 06/06/20 at 16:45; Stop 06/06/20 at 16:46; Status DC Ondansetron HCl (Zofran Odt) 4 mg PRN Q6HRS PRN PO NAUSEA/VOMITING; Start 06/07/20 at 08:30 Levothyroxine Sodium (Synthroid) 75 mcg DAILY06 PO Last administered on 06/07/20at 09:00; Start 06/07/20 at 09:00 Cefazolin Sodium/ Dextrose (Ancef 2gm Premix) 2 gm STK-MED ONCE IV ; Start 06/06/20 at 11:00; Stop 06/07/20 at 11:40; Status DC Active Scripts Active Reported Levothyroxine Sodium 75 Mcg Tablet 1 Tab PO DAILY Tablet (Pnv Cmb#95/Ferrous Fumarate/Fa) 1 Each Tablet 1 Tab PO DAILY Exam Abd: soft, mild tenderness, fundus firm Incision site: clean, dry and intact Assessment POD#1 s/p repeat c/s Plan of Care: Continue current Tx, Mgmt ROMEO MORENO Jr, MD Jun 07, 2020 13:47
[2020-06-07 15:20] VITALS: BP 101/66
[2020-06-07] MEDS: FERROUS SULFATE 325 MG TABLET. PO SCH (20:20)
[2020-06-07 20:47] VITALS: BP 105/63
[2020-06-08] MEDS: oxyCODONE/APAP 5/325 1 TAB TABLET PO PRN ×4 (00:51→14:34)
[2020-06-08 00:58] VITALS: BP 105/61
[2020-06-08] MEDS: IBUPROFEN 400 MG TABLET. PO PRN ×2 (04:35→14:34)
[2020-06-08 04:42] VITALS: BP 113/64
[2020-06-08] MEDS: LEVOTHYROXINE 75 MCG TABLET PO SCH (05:20)
[2020-06-08] MEDS ORDERED: MAGNESIUM HYDROXIDE 2,400 MG/30 ML ORAL.SUSP. PO PRN (09:00)
[2020-06-08] MEDS: MULTIVITAMIN with MINERAL TABLET. PO SCH (09:14)
[2020-06-08] MEDS: FERROUS SULFATE 325 MG TABLET. PO SCH ×2 (09:14→14:34)
[2020-06-08] MEDS: DOCUSATE SODIUM 100 MG CAPSULE. PO PRN ×2 (09:14→14:34)
--- NOTE | 2020-06-08 10:15 | PDOC3 ---
OB DISCHARGE SUMMARY DATE OF ADMISSION: 06/06/20 DATE OF DISCHARGE: 06/08/20 REASON FOR ADMISSION: section INTRAPARTUM PROCEDURES: : Low Cerv Trans DISCHARGE DIAGNOSIS: Term Delivered DISCHARGE INFORMATION: Activity (ad tio), Diet (regular), Instructions (pelvic rest x 6 wks, no driving x 2 wks, no lifting > 20 lbs. x 6 wks) HOSPITAL COURSE Term gestation delivered section without complications. ROMEO MORENO Jr, MD Jun 08, 2020 10:15
[2020-06-08] MEDS ORDERED: DOCU-153 PO (10:18)
[2020-06-08] MEDS ORDERED: OXYC1TAB15 PO (10:18)
[2020-06-08] MEDS ORDERED: IBUP-1027 PO (10:18)
--- NOTE | 2020-06-08 10:19 | DISCH ---
DISCHARGE INSTRUCTIONS Condition on Discharge Condition on Discharge: Stable Activity After Discharge Activity Instructions for Disc: Activity as tolerated Lifting Instructions after Dis: No heavy lifting, No pulling or pushing, Do not lift >10 pounds Exercise Instruction after Dis: Walk 30 min, 3 x per week Driving Instructions after Dis: No driving for 2 weeks Weight Bearing Status after Di: Full weight bearing Diet after Discharge Diet after Discharge: Regular Checks after Discharge Checks after discharge: Check your Temp as needed Contacting the DRMaximiliano after DC Call your doctor for: If your condition worsens Follow-Up Follow up with: Dr. Vidales in 2 wks ROMEO VIDALES Jr, MD Jun 08, 2020 10:19
[2020-06-08 11:00] VITALS: BP 94/60
[2020-06-08] MEDS ORDERED: AMMONIA AROMATIC 15% INHALANT AMPUL. ONE (12:06)
[2020-06-08 15:00] VITALS: BP 113/66
--- NOTE | 2020-06-08 15:10 | NUR ---
Discharge and follow up instructions reviewed and given in [place] along with information about depression and when to seek help. Pt verbalized understanding and denied any questions at time of D/C. Pt taken out of the hospital per W/C.
== END 2020-06-08 15:10 | disposition home or self-care (01) | DRG 788 ==
LOC: 3 SO LND 09:30 → 3 NORTH 15:35
PROVIDERS: ADMIT Obstetrics & Gynecology; ATTEND Obstetrics & Gynecology
PROC: 10D00Z1 Extraction of Products of Conception, Low, Open Approach (ICD-10-PCS; principal; 2020-06-06)
DX: O34.211 Maternal care for low transverse scar from previous cesarean delivery (principal); Z3A.39 39 weeks gestation of pregnancy; Z37.0 Single live birth
CPT/HCPCS: 36415; 81001; 85025; 85027; 86592; 86850; 86900; 86901; 87086; J0690; J1885; J2274; J2370; J2405; J2590; J3010; J7120; G0378